=== PATIENT | male | born 1970 | race Caucasian/White ===

== ENCOUNTER → 2018-11-06 09:23 | Outpatient (CLI) | payer OTHER, SELFPAY ==
[2018-11-06 10:05] LABS: Absolute Lymphocyte Count 1.48 X10^3/ul (0.83-4.51); Absolute Neutrophil Count 4.6 X10^3/uL (2.0-7.7); Basophil# 0.04 X10^3/uL; Basophil% 0.6 % (0-1); Eosinophil# 0.15 X10^3/uL; Eosinophils% 2.2 % (0-5); Hematocrit 44.3 % (40-54); Hemoglobin 14.8 g/dl (13.0-16.5); Lymphocyte # 1.48 X10^3/ul (4.0); Lymphocyte % 21.8 % (19-41); Mean Corp Hgb Conc 33.4 g/gl (32-36); Mean Corpuscular Hgb 32.1 pg (27.0-32.0); Mean Corpuscular Volume 96.1 fL (80-94); Mean Platelet Vol. 9.6 fl (6.2-12.0); Monocyte# 0.53 X10^3/uL; Monocyte% 7.8 % (0-10); Neutrophil # 4.57 X10^3/uL (2.7-7.7); Neutrophil % 67.5 % (47-70); POSITIVE COUNT NO; POSITIVE DIFFERENTIAL NO; POSITIVE MORPHOLOGY NO; Platelet Count 254 K/mm3 (150-450); RBC Distribution Width CV 12.4 % (11.6-14.6); RBC Distribution Width SD 42.8 fl (35.1-43.9); Red Blood Count 4.61 M/mm3 (4.6-6.2); White Blood Count 6.8 K/mm3 (4.4-11.0)
[2018-11-06 10:27] LABS: ALB/GLOB Ratio 0.8 RATIO (0.9-2.4); AST(SGOT) 18 U/L (15-37); Alanine Aminotransfer ALT/SGPT 32 U/L (16-61); Albumin, Serum 3.3 g/dL (3.2-5.0); Alkaline Phosphatase 58 U/L (45-117); Anion Gap 6 (5-15); BUN 14 mg/dL (7-18); BUN/Creat Ratio 13.5 RATIO (10-20); Calcium,Total 8.5 mg/dL (8.5-10.1); Chloride 107 mmol/L (98-107); Cholesterol 191 mg/dL (200); Creatinine, Serum 1.04 mg/dL (0.70-1.30); EST Glomerular Filtration Rate 81 mL/min (>60); Est Glom Filt Rate - Afr Amer 98 mL/min (>60); Globulin 4.1 g/dL (2.2-4.2); Glucose 93 mg/dL (74-106); High Density Lipoprotein 54 mg/dL; PSA,Total - Annual Screen 0.84 ng/mL (0.00-4.00); Potassium 4.3 mmol/L (3.5-5.1); Protein, Total 7.4 g/dL (6.4-8.2); Sodium Level 142 mmol/L (136-145); Thyroid Stim Hormone (TSH) 1.95 uIU/mL (0.358-3.74); Triglycerides 90 mg/dL; Very Low Density Lipoprotein 18 mg/dL (5-40)
== END ==
PROVIDERS: Family Provider Nurse Practitioner; PCP Nurse Practitioner; Referring Provider Nurse Practitioner; Visit Provider Nurse Practitioner
DX: R10.13 Epigastric pain (principal); Z13.0 Encounter for screening for diseases of the blood and blood-forming organs and certain disorders involving the immune mechanism; Z12.5 Encounter for screening for malignant neoplasm of prostate; Z13.220 Encounter for screening for lipoid disorders; Z13.29 Encounter for screening for other suspected endocrine disorder
CPT/HCPCS: 36415; 80053; 80061; 84153; 84443; 85025; G0103

== ENCOUNTER → 2018-12-01 16:18 | Outpatient (CLI) | payer OTHER, SELFPAY ==
[2018-12-01 18:54] LABS: Vitamin B12 555 pg/mL (211-911)
[2018-12-01 19:16] LABS: Immature Platelet Fraction 2.4 % (1.0-7.9); RET-HE 32.5 pg (30-35); Reticulocyte Count 1.44 % (0.5-1.5)
== END ==
PROVIDERS: Family Provider Nurse Practitioner; PCP Nurse Practitioner; Referring Provider Nurse Practitioner; Visit Provider Nurse Practitioner
DX: R71.8 Other abnormality of red blood cells (principal)
CPT/HCPCS: 36415; 82607; 82746; 85045

== ENCOUNTER → 2018-12-06 15:52 | Outpatient (CLI) | payer OTHER, SELFPAY ==
--- NOTE | 2018-12-06 16:00 | US_ITS ---
STUDY: SUPERFICIAL ULTRASOUND - LEFT GROIN REASON FOR EXAM: Male, 48 years old. Left-sided hernia. Surgery many years ago. TECHNIQUE: A superficial ultrasound was performed with real-time and static carmichael-scale imaging. COMPARISON: None. FINDINGS: There is mild distortion in the subcutaneous tissues at the level of the prior hernia repair. Curvilinear echogenicity with posterior fusion shadowing in the left groin may be a previously implanted mesh. Deep to this is suggestion of an asymmetric rounded 3.5 cm area that does not change before or with Valsalva maneuver. US/Ext Non Vasc Limited/Soft Tiss IMPRESSION: Rounded 3.5 cm area in the left groin raises question of a small recurrent hernia, although its appearance is unchanged before and with Valsalva maneuver. The area is also difficult to evaluate due to posterior acoustic shadowing, possibly related to an overlapping mesh. Characterization with CT or MRI may be useful. Electronically Signed: Alonso Reynolds MD at 19:47 EST , Service support ,
--- NOTE | 2018-12-06 16:48 | CT_ITS ---
STUDY: CT ABDOMEN AND PELVIS WITHOUT CONTRAST REASON FOR EXAM: Male, 48 years old. Left-sided abdominal pain. Prior hernia repair x 2, question of recurrent hernia. RADIATION DOSAGE (If Supplied By Facility): CTDIvol = ( 14.75 ) mGy, DLP = ( 945.66 ) mGycm TECHNIQUE: Transaxial images were obtained from the dome of the diaphragm to the symphysis pubis without oral contrast, and without intravenous contrast. Sagittal and coronal images were reconstructed. Individualized dose optimization techniques were used for this CT. COMPARISON: None. FINDINGS: The visualized lung bases are unremarkable. The visualized portions of the heart are within normal limits. Normal liver. The portal vein diameter is 15.5 mm. There are multiple gallstones, one of the larger stones measuring 1.75 x 1.15 x 1.6 cm. There is no mural thickening of the gallbladder nor pericholecystic fluid to suggest cholecystitis. The common bile duct diameter is 5 mm. Normal spleen. Normal pancreas. Normal bilateral adrenal glands. Normal right kidney. Normal left kidney. No hydronephrosis. Normal visualized stomach. Normal small intestine. Normal colon. The appendix is visualized and appears normal. Normal abdominal aorta. Normal inferior vena cava. There are nonspecific periaortic lymph nodes in the retroperitoneum. Normal urinary bladder. Normal visualized prostate gland. There is a small umbilical hernia containing fat. There are mild multilevel degenerative changes of the visualized lumbar spine. Subcentimeter subarticular cystic degenerative change noted in the lateral roof of the left acetabulum. Small bilateral hydroceles are suggested. CT/Abdomen/Pelvis without Cont IMPRESSION: 1. Gallstones. No CT sign of acute cholecystitis or bile duct obstruction. 2. Small, fat-containing umbilical hernia. 3. The bowel is unremarkable without signs of obstruction. The appendix is normal. 4. No hydronephrosis. Electronically Signed: Alonso Reynolds MD at 17:33 EST , Service support ,
== END ==
PROVIDERS: Family Provider Nurse Practitioner; PCP Nurse Practitioner; Referring Provider Nurse Practitioner; Visit Provider Nurse Practitioner
DX: K45.8 Other specified abdominal hernia without obstruction or gangrene (principal)
CPT/HCPCS: 74176; 76882

== ENCOUNTER 2018-12-24 06:08 | Day surgery (SDC) | payer OTHER, SELFPAY ==
[2018-12-07 15:31] VITALS: BMI 34.9
[2018-12-24] VITALS (8 sets, daily range): BP systolic 75–136; BP diastolic 60–87; PULSE 69–88; RESP 16–18; TEMP 36.2–36.5; O2SAT 91–97; BMI 34.6
--- NOTE | 2018-12-24 07:30 | IMM_PTH ---
PATIENT: SUZANNE GARSIA LOC: EN U#:[id number] AGE/SX: 48/M ROOM: RE12/24/[address]: Dr. Suzanne Cueto MD : 1970 BED: DIS: 12/24/2018 SPEC #: [id number] RECD: 12/24/18 13:46 STATUS: MISBAH NOEMY #: [id number] LONI: 12/24/18 07:[address]: Suzanne Cueto DEPT: IMMUNOHISTOCHEMISTRY RECD BY: Naty Dan ENTERED: 12/24/18 13:47 SP TYPE: IMMUNO OTHR DR: Mi Ennis, SHAYE Tissues: A - Stomach, NOS Procedures: H Pylori (initial) PHYSICIAN & INSTITUTION [place] [id number] SPECIMEN INFORMATION: Tissue Source: A - Antrum biopsy Clinical Info: Epigastric pain, nausea, abdomen pain LLQ, umbilical hernia Specimen Number: [id number] CPT code: 62019 METHODOLOGY: Deparaffinized sections of prefer/formalin-fixed tissue or PAP/DQ stained slides are incubated with monoclonal/polyclonal antibodies/oligonucleotide probes. Localization is made via biotin free immunoperoxidase method. Appropriate controls are performed and reacted as expected. Results on target cell population are indicated in the following table: RESULTS: ANTIBODY / CLONE RESULT Block A H Pylori (polyclonal) negative These tests were developed and their performance characteristics determined by [facility]. They may not have been cleared or approved by the U.S. Food and Drug Administration. The FDA has determined that such clearance or approval is not necessary. INTERPRETATION: A. Antrum, biopsy: IHC with appropriate control is negative for Helicobacter organisms. CE:tere 12/27/18
--- NOTE | 2018-12-24 07:30 | EGD_PTH ---
PATIENT: SUZANNE GARSIA LOC: EN U#:[id number] AGE/SX: 48/M ROOM: RE12/24/[address]: Dr. Suzanne Cueto MD : 1970 BED: DIS: 12/24/2018 SPEC #: [id number] RECD: 12/24/18 10:59 STATUS: MISBAH NOEMY #: [id number] LONI: 12/24/18 07:[address]: Suzanne Cueto DEPT: SURGICAL PATHOLOGY RECD BY: Mian العلي ENTERED: 12/24/18 11:29 SP TYPE: EGD BIOPSY OTHR DR: SHAYE Gonzalez Tissues: A - Gastric mucous membrane B - Esophageal mucous membrane Procedures: Special Stain Group II Surgery Specimen Level IV Alcian Blue/PAS (control) HEADER OPERATION: Colonoscopy, EGD ([facility] [place]) PRE-OP DIAGNOSIS: Epigastric pain, nausea, abdomen pain left lower quadrant, umbilical hernia TISSUE SUBMITTED: A - Antrum biopsy for H. pylori and path, B - Distal esophagus biopsy MICROSCOPIC DIAGNOSIS A. Antrum biopsy for H. pylori and pathology: Focal mild chronic antral gastritis. See comment. B. Distal esophagus biopsy: Ulcerated squamous mucosa with acute inflammatory exudate and granulation tissue formation. Alcian blue/PAS stain with appropriate control is negative for fungal organism. No goblet cell metaplasia is found. CE:tere 12/27/18 COMMENT A. The results of immunohistochemistry for Helicobacter pylori will be reported separately ([id number]). MICROSCOPIC DESCRIPTION Slides are reviewed. GROSS DESCRIPTION A - Received in fixative is one container labeled with the patient's name and designated antrum biopsy. The specimen consists of one irregular fragment of light roach soft tissue that measures 0.4 x 0.3 x 0.1 cm. The specimen is totally submitted in one cassette. B - Received in fixative is one container labeled with the patient's name and designated esophagus biopsy. The specimen consists of multiple irregular fragments of light roach soft tissue that in aggregate measure 1 x 0.5 x 0.1 cm. The specimen is totally submitted in one cassette. / AM:tere 12/24/18 TC:3 CPT: 70856 x2, 83993
--- NOTE | 2018-12-24 07:58 | OP.ENDO_ITS ---
Patient Name: Errol Ruiz Procedure Date: 12/24/2018 7:24 AM Date of : 1970 Age: 48 Procedure: Upper GI endoscopy Indications: Epigastric abdominal pain Providers: Errol Cueto MD Referring MD: Errol Cueto MD Medicines: See the Anesthesia note for documentation of the administered medications Complications: No immediate complications. Procedure: Pre-Anesthesia Assessment: - Prior to the procedure, a History and Physical was performed, and patient medications and allergies were reviewed. The patient's tolerance of previous anesthesia was also reviewed. The risks and benefits of the procedure and the sedation options and risks were discussed with the patient. All questions were answered, and informed consent was obtained. Prior Anticoagulants: The patient has taken no previous anticoagulant or antiplatelet agents. ASA Grade Assessment: II - A patient with mild systemic disease. After reviewing the risks and benefits, the patient was deemed in satisfactory condition to undergo the procedure. After obtaining informed consent, the endoscope was passed under direct vision. Throughout the procedure, the patient's blood pressure, pulse, and oxygen saturations were monitored continuously. The gastroscope was introduced through the mouth, and advanced to the second part of duodenum. The upper GI endoscopy was accomplished without difficulty. The patient tolerated the procedure well. Scope In: 7:32:03 AM Scope Out: 7:37:43 AM Total Procedure Duration Time 0 hours 5 minutes 40 seconds Findings: The Z-line was irregular and was found 39 cm from the incisors. Biopsies were taken with a cold forceps for histology. LA Grade A (one or more mucosal breaks less than 5 mm, not extending between tops of 2 mucosal folds) esophagitis with no bleeding was found 39 cm from the incisors. A small hiatal hernia was present. Diffuse mildly erythematous mucosa without bleeding was found in the gastric antrum. Biopsies were taken with a cold forceps for histology. The examined duodenum was normal. Impression: - Z-line irregular, 39 cm from the incisors. Biopsied. - LA Grade A reflux esophagitis. - Small hiatal hernia. - Erythematous mucosa in the antrum. Biopsied. - Normal examined duodenum. Recommendation: - Discharge patient to home. - Resume previous diet. - Continue present medications. - Use Prilosec (omeprazole) 40 mg PO daily. - Return to my office in 2 weeks. Procedure Code(s): --- Professional --- 20533, Esophagogastroduodenoscopy, flexible, transoral; with biopsy, single or multiple Diagnosis Code(s): --- Professional --- K22.8, Other specified diseases of esophagus K21.0, Gastro-esophageal reflux disease with esophagitis K44.9, Diaphragmatic hernia without obstruction or gangrene K31.89, Other diseases of stomach and duodenum R10.13, Epigastric pain CPT copyright 2017 [employer]. All rights reserved. The codes documented in this report are preliminary and upon fire information officer review may be revised to meet current compliance requirements. Errol Cueto MD 12/24/2018 7:57:59 AM This report has been signed electronically. Number of Addenda: 0 Note Initiated On: 12/24/2018 7:24 AM
--- NOTE | 2018-12-24 08:01 | OP.ENDO_ITS ---
Patient Name: Errol Ruiz Procedure Date: 12/24/2018 7:38 AM Date of : 1970 Age: 48 Procedure: Colonoscopy Indications: Abdominal pain in the left lower quadrant Providers: Errol Cueto MD Referring MD: Errol Cueto MD Medicines: See the Anesthesia note for documentation of the administered medications Patient Profile: Last Colonoscopy: none. The patient's first colonoscopy is today. Complications: No immediate complications. Procedure: Pre-Anesthesia Assessment: - Prior to the procedure, a History and Physical was performed, and patient medications and allergies were reviewed. The patient's tolerance of previous anesthesia was also reviewed. The risks and benefits of the procedure and the sedation options and risks were discussed with the patient. All questions were answered, and informed consent was obtained. Prior Anticoagulants: The patient has taken no previous anticoagulant or antiplatelet agents. ASA Grade Assessment: II - A patient with mild systemic disease. After reviewing the risks and benefits, the patient was deemed in satisfactory condition to undergo the procedure. After I obtained informed consent, the scope was passed under direct vision. Throughout the procedure, the patient's blood pressure, pulse, and oxygen saturations were monitored continuously. The colonoscope was introduced through the anus and advanced to the cecum, identified by appendiceal orifice and ileocecal valve. The colonoscopy was performed without difficulty. The patient tolerated the procedure well. The quality of the bowel preparation was good. The ileocecal valve was photographed. Scope In: 7:41:09 AM Scope Withdrawal Time 0 hours 6 minutes 13 seconds Scope Out: 7:52:58 AM Total Procedure Duration Time 0 hours 11 minutes 49 seconds Findings: Hemorrhoids were found on perianal exam. A few diverticula were found in the sigmoid colon. The exam was otherwise without abnormality. Impression: - Hemorrhoids found on perianal exam. - Diverticulosis in the sigmoid colon. - The examination was otherwise normal. - No specimens collected. Recommendation: - Discharge patient to home. - Resume previous diet. - Continue present medications. - Repeat colonoscopy in 10 years for screening purposes. No findings that correlate with left lower quadrant abdominal pain Procedure Code(s): --- Professional --- 28504, Colonoscopy, flexible; diagnostic, including collection of specimen(s) by brushing or washing, when performed (separate procedure) Diagnosis Code(s): --- Professional --- K64.9, Unspecified hemorrhoids R10.32, Left lower quadrant pain K57.30, Diverticulosis of large intestine without perforation or abscess without bleeding CPT copyright 2017 [employer]. All rights reserved. The codes documented in this report are preliminary and upon meat counter worker review may be revised to meet current compliance requirements. Errol Cueto MD 12/24/2018 8:01:05 AM This report has been signed electronically. Number of Addenda: 0 Note Initiated On: 12/24/2018 7:38 AM
== END 2018-12-24 08:53 | disposition home or self-care (01) ==
LOC: EN 06:09 → AC 06:10
PROVIDERS: Family Provider Nurse Practitioner; PCP Nurse Practitioner; Referring Provider Surgery; Visit Provider Surgery
PROC: 0DJD8ZZ Inspection of Lower Intestinal Tract, Via Natural or Artificial Opening Endoscopic (ICD-10-PCS; CPT 45378; principal; 2018-12-24 07:25)
DX: K21.0 Gastro-esophageal reflux disease with esophagitis (principal); K29.50 Unspecified chronic gastritis without bleeding; K44.9 Diaphragmatic hernia without obstruction or gangrene; R10.13 Epigastric pain; K22.8 Other specified diseases of esophagus; K64.9 Unspecified hemorrhoids; K57.30 Diverticulosis of large intestine without perforation or abscess without bleeding; R10.32 Left lower quadrant pain; K80.10 Calculus of gallbladder with chronic cholecystitis without obstruction; K42.9 Umbilical hernia without obstruction or gangrene; Z87.891 Personal history of nicotine dependence
CPT/HCPCS: 43239; 45378; 88305; 88313; 88342; J7120; J2405

== ENCOUNTER 2018-12-31 05:18 | Day surgery (SDC) | payer OTHER, SELFPAY ==
[2018-12-07 15:31] VITALS: BMI 34.9
[2018-12-24 06:41] VITALS: BMI 34.6
--- NOTE | 2018-12-27 16:16 | EKG12_ITS ---
Test Reason : PRE OP Blood Pressure : / mmHG Vent. Rate : 072 BPM Atrial Rate : 072 BPM P-R Int : 168 ms QRS Dur : 090 ms QT Int : 372 ms P-R-T Axes : 063 018 040 degrees QTc Int : 407 ms Normal sinus rhythm Normal ECG Confirmed by LIVIA MAYA, KEVIN ([id number]), acquisitions editor DILAN MANZANARES ([id number]) on 12/28/2018 2:12:11 PM Referred By: Errol Cueto Confirmed By:KEVIN BHAKTA MD
[2018-12-27 17:15] LABS: Anion Gap 7 (5-15); BUN 14 mg/dL (7-18); BUN/Creat Ratio 12.4 RATIO (10-20); Calcium,Total 8.4 mg/dL (8.5-10.1); Chloride 107 mmol/L (98-107); Creatinine, Serum 1.13 mg/dL (0.70-1.30); EST Glomerular Filtration Rate 73 mL/min (>60); Est Glom Filt Rate - Afr Amer 89 mL/min (>60); Glucose 98 mg/dL (74-106); Potassium 3.9 mmol/L (3.5-5.1); Sodium Level 139 mmol/L (136-145)
[2018-12-27 17:37] LABS: Hemoglobin 14.9 g/dl (13.0-16.5); Mean Corp Hgb Conc 33.9 g/gl (32-36); Mean Corpuscular Hgb 32.5 pg (27.0-32.0); Mean Corpuscular Volume 95.9 fL (80-94); Mean Platelet Vol. 10.3 fl (6.2-12.0); Platelet Count 251 K/mm3 (150-450); RBC Distribution Width CV 12.9 % (11.6-14.6); RBC Distribution Width SD 44.1 fl (35.1-43.9); Red Blood Count 4.59 M/mm3 (4.6-6.2); White Blood Count 6.7 K/mm3 (4.4-11.0)
[2018-12-27 18:05] LABS: Scan Indicated on CBC? Y/N NO
[2018-12-31] VITALS (8 sets, daily range): BP systolic 84–130; BP diastolic 57–80; PULSE 61–76; RESP 16–18; TEMP 35.9–36.8; O2SAT 93–97; BMI 34.4
--- NOTE | 2018-12-31 | GALL_PTH ---
PATIENT: SUZANNE GARSIA [place] [facility] [place][id number] AGE/SX: 48/M ROOM: RE12/31/[address]: Dr. Suzanne Cueto MD : 1970 BED: DIS: 12/31/2018 SPEC #: [id number] RECD: 12/31/18 14:24 STATUS: MISBAH NOEMY #: [id number] LONI: 12/31/18 00:[address]: Suzanne Cueto DEPT: SURGICAL PATHOLOGY RECD BY: Prashant López ENTERED: 12/31/18 14:24 SP TYPE: MIROSLAVA CROSS DR: Mi Ennis, WIND FIELD MANAGER-C Tissues: A - Gallbladder, NOS B - HERNIA Procedures: Surgery Specimen Level II Surgery Specimen Level III HEADER OPERATION: Laparoscopic cholecystectomy with IOC; umbilical hernia repair with mesh PRE-OP DIAGNOSIS: Epigastric pain, nausea, abdominal pain left lower quadrant, calculus of gallbladder with chronic cholecystitis without obstruction, neuralgia of groin, umbilical hernia without obstruction or gangrene TISSUE SUBMITTED: A - Gallbladder, B - Hernia sac MICROSCOPIC DIAGNOSIS A. Gallbladder, cholecystectomy: Chronic cholecystitis. B. Hernia sac, herniorrhaphy: Fibrosis and vascular ectasia. AM:tere 01/03/19 MICROSCOPIC DESCRIPTION Slides are reviewed. GROSS DESCRIPTION A - Received is one container labeled with the patient's name and designated gallbladder. The specimen consists of a gallbladder measuring 10.5 x 3 x 3 cm. The external surface is smooth and glistening. Focally, it is granular, hemorrhagic and contains cautery artifact. The lumen of the gallbladder contains yellow-green mucoid bile and no calculi. The mucosa is bile-stained and without any mass lesions. The gallbladder wall averages 0.2 cm in thickness and is free of mass lesions. Risk And Insurance Manager sections of the gallbladder and the cystic duct are submitted in one cassette. B - Received in fixative is one container labeled with the patient's name and designated hernia sac. The specimen consists of three irregular fragments of pink-roach soft tissue that in aggregate measure 2 x 1.5 x 0.3 cm. The specimen is totally submitted in one cassette. / AM:tere 12/31/18 TC:3 CPT: 22749, 03329
[2018-12-31] MEDS: Cefazolin 2 GM in 0.9% Normal Saline 100 ML IV (07:55)
--- NOTE | 2018-12-31 07:58 | PCM.DC.GS ---
Discharge Diet: Light diet - advance as tolerated - if you have questions about your diet instructions, please talk to you doctor. Discharge Activity: May Not Drive - for 3-5days or while taking narcotic pain medicine. May shower in (days): 1 Lifting Restrictions: 10 pounds Call your doctor if your incision/area has: Continuous Slow Oozing, Sudden Increased Bleeding, Increased Pain/ Swelling, Increased Redness, Foul Smelling Discharge Call your doctor if you observe: Fever of 101 or Higher Suture Line Care: Avoid Pulling/Pushing, Avoid Pinching/Bending Additional Dressing/Incision Instructions:: Change or remove dressing in 4 days. Leave steri-strips in place for 1 week. Allergies/Adverse Reactions: Allergies aspirin Allergy (Unknown, Verified 12/21/18 11:28) Unknown Medications to take at Discharge Cyanocobalamin (Vitamin B-12) [Vitamin B-12] 1,000 mcg PO DAILY 12/21/18 Multivitamin [Multiple Vitamins] 1 each PO DAILY 12/21/18 Omeprazole 40 mg PO DAILY #90 tab 12/24/18 Hydrocodone Bitart/Apap 5-325 [[place] 5MG-325MG] 1 tablet PO Q4H PRN PRN 3 Days #8 tablet 12/31/18 The following prescriptions were given: Hydrocodone Bitart/Apap 5-325 [[place] 5MG-325MG] 1 tablet PO Q4H PRN PRN 3 Days #8 tablet PRN Reason: Pain Primary Care Physician: Mi Ennis, CALL CENTER DISPATCHER-C [Primary Care Provider] - Test Results: Test results from this visit will be discussed in further detail at your follow-up appointment, if applicable. Please Follow Up With: Errol Cueto MD - [phone] When: Call to make an appointment to be seen in about 10 days.
--- NOTE | 2018-12-31 08:05 | RAD_ITS ---
STUDY: INTRAOPERATIVE CHOLANGIOGRAM. REASON FOR EXAM: Male, 48 years old. Laparoscopic cholecystectomy. FLUOROSCOPY TIME (if supplied): (12.6 seconds) minutes/seconds TECHNIQUE: Intraoperative coagulum was performed by the surgeon. Imaging was provided. COMPARISON: None. FINDINGS: The visualized intrahepatic biliary ducts are unremarkable. The common bile duct is not dilated. No intraluminal filling defect is seen. There is free flow of contrast into the duodenum. RAD/Cholangiogram/ O R,Initial IMPRESSION: Unremarkable intraoperative cholangiogram. Electronically Signed: Sedrick Schrader MD at 9:45 EST , Service support ,
[2018-12-31] MEDS: Bupivacaine Mpf 0.5% 30 ML VIAL (09:40)
--- NOTE | 2018-12-31 09:44 | PCM.OPRPT ---
Problem List (1) Cholelithiasis with chronic cholecystitis Status: Chronic Qualifiers: Cholelithiasis location: gallbladder Biliary obstruction: without biliary obstruction Qualified Code(s): K80.10 - Calculus of gallbladder with chronic cholecystitis without obstruction Report of Operation Date of Procedure: 12/31/18 Pre-Operative Diagnosis: Chronic cholecystitis cholelithiasis. Umbilical hernia Post-Operative Diagnosis: Same Surgery/Procedure Performed:: Laparoscopic cholecystectomy with cholangiography. Umbilical herniorrhaphy utilizing ventral Juvenal ST mesh 6.4 cm diameter lot number [id number]. Reference #[id number]. Expiry date 10/27/2020 Description of Surgical Findings:: Timeout and informed consent was obtained. 48-year-old gent was taken out from placement table underwent general endotracheal intubation anesthesia. Ancef 2 g given intravenously preoperatively. The abdomen sterilely prepped and draped. 0.5% Marcaine was used as local anesthetic. Throughout the procedure total 30 cc was used. Skin sites were pre-anesthetized. A vertical incision was made through the umbilicus. Sharp and blunt dissection was used to identify the umbilical hernia was sharply dissected free holding sutures of 0 Vicryl placed a 10 mm trocar was directly placed through the open peritoneum the abdomen was insufflated with CO2 to a pressure of 10 mmHg pressure the abdomen was inspected there was fatty omentum overlying the small bowel no evidence of any trocar injuries. There was dense adherence of the omentum completely obliterating view to the gallbladder. 5-minute trochars were placed in the epigastric mid abdomen right upper quadrant tedious blunt dissection was required to gradually take the omentum off of the gallbladder hemo-lock clips were generous to be used for hemostasis finally I was able to get exposure down to the infundibular area further blunt dissection was used to get the critical view the cystic artery and cystic duct now clearly identified. Hemo-lock clip was placed on the cystic duct and then an incision was made in the cystic duct cholangiogram catheter was inserted through a 14-gauge Angiocath fluoroscopically controlled clench grams were obtained demonstrating normal ductal anatomy and free flow into the small bowel. The cholangiogram catheter was removed and a hemo-lock clip was nicely placed on the cystic duct. Cystic artery was cured twice proximally with 2 hemo-lock clips. Then the gallbladder was tediously dissected free from the liver bed with electrocautery. The gallbladder was very elongated and had several large stones. I was able to get good complete release of the gallbladder. The liver bed was inspected was noted to be hemostatic. Excess fluid and air was aspirated free generous irrigation had been utilized in the right upper quadrant. The gallbladder was placed in retrieval bag it was exited at the umbilicus enlargement of the fascial incision was required because of the size of the stones. The abdomen was allowed to deflate the CO2. The 6.4 similar ventral X was inserted. The tails were secured with 0 Nurolon. The fascia was closed transversely with multiple sutures of 0 Nurolon. Skin edges were approximated with interrupted 4 Monocryl subdermal stitches. I did laparoscopically inspect the repair prior to leaving. The mesh appeared to have a good positional flat lie. I made sure the greater omentum was beneath it. There was no evidence of the bowel. Trochars were removed under visualization. The abdomen was allowed to deflate of the CO2. Steri-Strips Telfa and OpSite dressings applied after the 4-0 Monocryl closure and the subcuticular layer. Sponge and instrument and needle counts were reported to the surgeon be correct. Blood loss was minimal. He tolerated the procedure well was taken to the recovery area in satisfactory condition without apparent complication. Specimens gallbladder and portions of umbilical hernia sac and contents. Drains none. Blood loss minimal. Errol Cueto M.D., F.A.C.S. Type of Anesthesia:: General Anesthesiologist: Timothy Santana
== END 2018-12-31 14:20 | disposition home or self-care (01) ==
LOC: SDC 05:19 → AC 05:20
PROVIDERS: Family Provider Nurse Practitioner; PCP Nurse Practitioner; Referring Provider Surgery; Visit Provider Surgery
PROC: (CPT 47610; principal; 2018-12-31 07:40)
DX: K80.10 Calculus of gallbladder with chronic cholecystitis without obstruction (principal); K42.9 Umbilical hernia without obstruction or gangrene; Z87.891 Personal history of nicotine dependence
CPT/HCPCS: 00790; 47563; 49652; 36415; 74300; 76000; 80048; 85027; 88302; 88304; 93005; C1781; J7120; J2405

== ENCOUNTER → 2021-11-09 10:21 | Outpatient (CLI) | payer OTHER, SELFPAY ==
[2021-11-09 11:07] LABS: ALB/GLOB Ratio 0.9 RATIO (0.9-2.4); AST(SGOT) 18 U/L (15-37); Alanine Aminotransfer ALT/SGPT 38 U/L (16-61); Albumin, Serum 3.6 g/dL (3.2-5.0); Alkaline Phosphatase 58 U/L (45-117); Anion Gap 7 (5-15); BUN 14 mg/dL (7-18); BUN/Creat Ratio 12.8 RATIO (10-20); Calcium,Total 8.7 mg/dL (8.5-10.1); Chloride 105 mmol/L (98-107); Cholesterol 176 mg/dL (200); Creatinine, Serum 1.09 mg/dL (0.70-1.30); EST Glomerular Filtration Rate 76 mL/min (>60); Est Glom Filt Rate - Afr Amer 91 mL/min (>60); Globulin 3.8 g/dL (2.2-4.2); Glucose 106 mg/dL (74-106); High Density Lipoprotein 61 mg/dL; Potassium 4.3 mmol/L (3.5-5.1); Protein, Total 7.4 g/dL (6.4-8.2); Sodium Level 140 mmol/L (136-145); Triglycerides 84 mg/dL; Very Low Density Lipoprotein 17 mg/dL (5-40)
== END ==
PROVIDERS: PCP Nurse Practitioner; Referring Provider Nurse Practitioner; Visit Provider Nurse Practitioner
DX: R55 Syncope and collapse (principal)
CPT/HCPCS: 36415; 80053; 80061

== ENCOUNTER → 2025-10-21 | Outpatient (CLI) | payer OTHER, SELFPAY ==
--- OUTSIDE RECORDS SUMMARY | 2025-10-21 09:07 | XMS RPT_ITS | CCD ---
Author Organization [facility] Care Team Providers Care Hand Wood Sander Name Role Phone Mi Venegas E Unavailable Juanita Amato Unavailable Unavailable Unavailable Unavailable Mi Venegas Unavailable Unavailable Mi Venegas Unavailable Unavailable Mi Venegas Unavailable Juanita Amato Unavailable Unavailable Unavailable Unavailable DAVID CARVAJAL MD Admitting Unavailable DAVID CARVAJAL MD Attending Unavailable DAVID CARVAJAL MD Primary Care Unavailable SIOMARA PICKETT MD Attending Unavailable SIOMARA PICKETT MD Primary Care Unavailable SIOMARA PICKETT MD Admitting Unavailable Rubi Mi KING Unavailable Suzanne Dozier Unavailable Curt Shah LPN Unavailable Unavailable Unavailable Unavailable Mi Venegas Unavailable Mi Venegas Unavailable Unavailable Mi Venegas Unavailable Tomeka Harvey LPN Unavailable Unavailable Lexii Coleman CNP Unavailable RUBI SHAW MI Primary Care Physician SUHAS RODRIGUEZ MD Attending Unavail able RUBI SHAW [facility] Primary Care Unavailable Allergies Allergy Classification Reported Allergen(s) Allergy Type Date of Onset Reaction(s) Facility (9 sources) Aspirin; Translations: [Aspirin *ANALGESICS - NonNarcotic*] Drug Allergy Hives, Swelling [facility] Work Phone: Medications Completed/Discontinued Medications Medication Drug Class(es) Dates Sig (Normalized) Sig (Original) omeprazole 40 mg delayed release oral capsule (8 sources) Proton Pump Inhibitor Start: 11-01-2018 End: 12-01-2018 take 1 capsule by mouth once daily before mealtime Omeprazole 40 MG Oral Capsule Delayed Release 1 (one) Capsule daily before a meal for 0 days Quantity: 30 {Capsule} Refills: 1 Ordered: 01-Dec-2018 Mi Venegas Start : 01-Nov-2018 End : 01-Dec-2018 Inactive NEGATED: Highlighted row has not occurred!No Known Historical Medications (4 sources) No Known Historical Medications Problems Active Problems Problem Classification Problem Date Documented Da te Episodic/Chronic Abdominal hernia (12 sources) Hernia of abdominal cavity; Translations: [Recurrent abdominal hernia without obstruction or gangrene, unspecified hernia type] 11-01-2018 Episodic Abdominal pain (12 sources) Epigastric pain; Translations: [Abdominal pain, epigastric] 11-01-2018 Episodic Comment on above: stop omeprazole Immunizations and screening for infectious disease (14 sources) Need for prophylactic vaccination and inoculation against influenza; Translations: [Needs influenza immunization] 11-18-2021 Episodic Open wounds of extremities (1 source) Laceration of hand without foreign body; Translations: [Laceration without foreign body of unspecified hand, initial encounter] Onset: 04-13-2023 Episodic Other hematologic conditions (9 sources) Other abnormality of red blood cells; Translations: [MCV - raised] 12-01-2018 Episodic Other lower respiratory disease (10 sources) Snoring; Translations: [Snores] 11-18-2021 Episodic Other nutritional; endocrine; and metabolic disorders (20 sources) Body mass index 30+ - obesity; Translations: [BMI 33.0-33.9,adult] 11-01-2018 Chronic Other screening for suspected conditions (not mental disorders or infectious disease) (20 sources) Patient encounter status; Translations: [Encounter for screening for lipid disorder] 11-18-2021 Episodic Residual codes; unclassified (10 sources) FH: Gout; Translations: [Family history of gout] 11-01-2018 Episodic Comment on above: brother Residual codes; unclassified (2 sources) Needs influenza immunization; Translations: [Need for prophylactic vaccination and inoculation against influenza (Renamed from Need for immunization against influenza)] 11-01-2018 Episodic Residual codes; unclassified (2 sources) Family history of ischemic heart disease and other diseases of the circulatory system; Translations: [Family history of early CAD] 11-01-2018 Episodic Comment on above: Father around age 65 [address] Residual codes; unclassified (8 sources) FH: premature coronary heart disease; Translations: [Family history of early CAD] 11-18-2021 Episodic Comment on above: Father around age 65 [address] Residual codes; unclassified (16 sources) Non-smoker; Translations: [Non-smoker] 11-18-2021 Episodic Residual codes; unclassified (4 sources) Influenza-like symptoms; Translations: [Flu-like symptoms] 12-03-2022 Episodic Comment on above: 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 discussed red flags. call Thursday if not better, we will do chest xray and maybe z martín-tylenol for fever, can also alternate with ibuprofen if no contraindications. -robitussin or equivalent for cough. try humidifier and vicks. cough drops. 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 Inessa Gupta at [facility].Stress normal, 30 day holter, pending. Past or Other Problems Problem Classification Problem Date Documented Date Episodic/Chronic Deficiency and other anemia (6 sources) Deficiency and other anemia Diabetes mellitus without complication (6 sources) Diabetes mellitus without complication Esophageal disorders (2 sources) Esophageal disorders Hemorrhoids (6 sources) Hemorrhoids; Translations: [Hemorrhoids] Onset: 11-30-1992 11-18-2021 Episodic Residual codes; unclassified (2 sources) H/O: Disorder; Translations: [Hemorrhoids] Onset: 11-30-1992 11-01-2018 Episodic Unclassified (20 sources) Unclassified (11 sources) Recurrent abdominal hernia without obstruction or gangrene, unspecified hernia type Unclassified (10 sources) Patient encounter status; Translations: [Encounter for screening for lipid disorder] 11-01-2018 Unclassified (16 sources) Screening status; Translations: [Encounter for screening for malignant neoplasm of prostate (Renamed from Screening for prostate cancer)] 11-01-2018 Unclassified (11 sources) Abdominal pain, epigastric Unclassified (6 sources) Encounter for screening for other suspected endocrine disorder Unclassified (8 sources) hay fever Onset: 11-30-1979 11-01-2018 Unclassified (6 sources) Encounter for well adult exam with abnormal findings (Renamed from Encounter for general adult medical examination with abnormal findings) Unclassified (6 sources) Screening for cardiovascular condition Unclassified (20 sources) Non-smoker; Translations: [Non-smoker] 11-01-2018 Unclassified (6 sources) Family history of gout Unclassified (6 sources) BMI 33.0-33.9,adult Unclassified (6 sources) Family history of early CAD Unclassified (9 sources) BMI 34.0-34.9,adult Unclassified (5 sources) Elevated MCV Unclassified (4 sources) BMI 35.0-35.9,adult Unclassified (8 sources) Snores Results Test Name Value Interpretation Reference Range Facility XR HAND MINIMUM [address] [facility] 04-13-2023 XR HAND MINIMUM 3 VIEWS RIGHT ORIGINAL EXAMINATION: THREE XRAY VIEWS OF THE RIGHT HAND 04/13/2023 1:36 pm COMPARISON: None. HISTORY: ORDERING SYSTEM PROVIDED HISTORY: Reason for Exam: pain; laceration to posterior aspect of hand directly across knuckles. Patient states using granular work in slice back of hand no history of any other injury or foreign body FINDINGS: No fracture or dislocation. There are multiple tiny radiopaque foreign bodies noted in the dorsal soft tissues at the 2nd and 3rd MCP joints. There is additional soft tissue swelling and subcutaneous air noted in the same location. Carpal arcs are maintained. Scapholunate relationship is normal. IMPRESSION: No acute osseous abnormality. Soft tissue laceration with numerous tiny radiopaque foreign bodies of the dorsal hand at the 2nd and 3rd MCP joints. I have personally reviewed the images of this examination and agree with the resident's findings and interpretation. Interpreted by: Cristobal Coto MD Preliminary Report By: Yinka Christian Electronically signed By Cristobal Coto MD Dictated Date: 04/13/2023 1:51:19 PM Prelim Date: 04/13/2023 1:56:41 PM Sign Date: 04/13/2023 2:10:22 PM Ordering Provider: SUHAS Banda [facility] ([place] Comprehensive Metabolic Prof mieric 11-09-2021 Albumin [Mass/Vol] 3.6 g/dL Normal 3.2-5.0 [facility] Comment on above: Performed By: #### L 500.4050, L500.4100 #### [facility] [address] [place], [address] Albumin/Globulin [Mass ratio] 0.9 {ratio} Normal 0.9-2.[address] [facility] Comment on above: Performed By: #### L 500.4050, L500.4100 #### [facility] [address] [place], [address] ALK P 58 U/L Normal 45-117 [facility] Comment on above: Performed By: #### L 500.4050, L500.4100 #### [facility] [address] [place], [address] ALT [Catalytic activity/Vol] 38 U/L Normal 16-[address] [facility] Comment on above: Performed By: #### L 500.4050, L500.4100 #### [facility] [address] [place], [address] AST [Catalytic activity/Vol] 18 U/L Normal 15-[address] [facility] Comment on above: Performed By: #### L 500.4050, L500.4100 #### [facility] [address] [place], [address] Bilirubin [Mass/Vol] 0.60 mg/dL Normal 0.20-1.[address] [facility] Comment on above: Result Comment: For patients on eltrombopag therapy, use of Dimension [place] TBIL is not recommended. Performed By: #### L 500.4050, L500.4100 #### [facility] [address] [place], [address] BUN/CRE 12.8 RATIO Normal 10-20 [facility] Comment on above: Performed By: #### L 500.4050, L500.4100 #### [facility] [address] [place], [address] CA,Total 8.7 mg/dL Normal 8.5-10.1 [facility] Comment on above: Performed By: #### L 500.4050, L500.4100 #### [facility] [address] [place], [address] Chloride [Moles/Vol] 105 mmol/L Normal 98-[address] [facility] Comment on above: Performed By: #### L 500.4050, L500.4100 #### [facility] [address] [place], [address] CO2 [Moles/Vol] 28.0 mmol/L Normal 21.0-32.0 [facility] Comment on above: Performed By: #### L 500.4050, L500.4100 #### [facility] [address] [place], [address] Creatinine [Mass/Vol] 1.09 mg/dL Normal 0.70-1.[address] [facility] Comment on above: Result Comment: The validity of the calculated GFR GFRAA in patients over 70 years has not been determined. Clinical correlation is essential. Performed By: #### L 500.4050, L500.4100 #### [facility] [address] [place], [address] EST GFR - AA 91 mL/min Normal >60 [facility] Comment on above: Result Comment: Afri can Nepalese GFR Calc Performed By: #### L 500.4050, L500.4100 #### [facility] [address] [place], [address] GAP 7 Normal 5-15 [facility] Comment on above: Performed By: #### L 500.4050, L500.4100 #### [facility] [address] [place], [address] GFR/1.73 sq M.predicted among non-blacks MDRD (S/P/Bld) [Vol rate/Area] 76 mL/min/{1.73_m2} Normal >60 [facility] Comment on above: Result Comment: Non- GFR Calc Performed By: #### L 500.4050, L500.4100 #### [facility] [address] [place], [address] Globulin (S) [Mass/Vol] 3.8 g/dL Normal 2.2-4.[address] [facility] Comment on above: Performed By: #### L 500.4050, L500.4100 #### [facility] [address] [place], [address] Glucose [Mass/Vol] 106 mg/dL Normal 74-106 [facility] Comment on above: Result Comment: Fast ing Glucose result from 100 to 125 mg/dL suggests IMPAIRED HOMEOSTASIS per A.D.A. criteria. Please note revised GLUCOSE reference range effective 2018. Performed By: #### L 500.4050, L500.4100 #### [facility] [address] [place], [address] Potassium [Moles/Vol] 4.3 mmol/L Normal 3.5-5.[address] [facility] Comment on above: Performed By: #### L 500.4050, L500.4100 #### [facility] [address] [place], [address] Sodium [Moles/Vol] 140 mmol/L Normal 136-145 [facility] Comment on above: Performed By: #### L 500.4050, L500.4100 #### [facility] [address] [place], [address] T PROT 7.4 g/dL Normal 6.4-8.2 [facility] Comment on above: Performed By: #### L 500.4050, L500.4100 #### [facility] [address] [place], [address] Urea nitrogen [Mass/Vol] 14 mg/dL Normal 7-[address] [facility] Comment on above: Performed By: #### L 500.4050, L500.4100 #### [facility] [address] [place], [address] Lipid Profileon 11-09-2021 Cholesterol [Mass/Vol] 176 mg/dL Normal [address] [facility] Comment on above: Result Comment: <200 mg/dL Desirable 200-240 mg/dL Borderline >240 mg/dL High Risk Performed By: #### L 500.4050, L500.4100 #### [facility] [address] [place], [address] Cholesterol in HDL [Mass/Vol] 61 mg/dL Normal [facility] Comment on above: Result Comment: The drugs N-Acetylcysteine and Metamizole may falsely depress this assay. Reference Range HDL <40 mg/dL Low HDL Cholesterol HDL >or= 60 mg/dL High HDL Cholesterol Performed By: #### L 500.4050, L500.4100 #### [facility] [address] [place], [address] Cholesterol in LDL [Mass/Vol] 98 mg/dL Normal 0-[address] [facility] Comment on above: Performed By: #### L 500.4050, L500.4100 #### [facility] [address] [place], [address] Cholesterol in VLDL [Mass/Vol] 17 mg/dL Normal 5-[address] [facility] Comment on above: Performed By: #### L 500.4050, L500.4100 #### [facility] [address] [place], [address] Triglyceride [Mass/Vol] 84 mg/dL Normal [facility] Comment on above: Result Comment: The drugs N-Acetylcysteine and Metamizole may falsely depress this assay. Serum Triglycerides Reference Interval Normal <150 mg/dL Borderline high 150 - 199 mg/dL High 200 - 499 mg/dL Very High > or = 500 mg/dL Performed By: #### L 500.4050, L500.4100 #### [facility] [address] [place], [address] EMERGENCY REPORTon [address] [facility] EMERGENCY ROOM REPORT NAME ACCOUNT SEX AGE ADMIT DISCHARGE PT MED. RECORD# NUMBER DATE DATE TYPE SUZANNE GARSIA [id number] M 50 10/06/21 3 RAHEEL [id number] ROOM: ER DATE OF : 1970 DICTATING PHYSICIAN: Christina Joel TIME SEEN: 1900 hours. HISTORY OF PRESENT ILLNESS: This is a 50-year-old white male who passed out at home. He states that he was laughing rather forcefully and then the family noticed that he stopped breathing for about 20-30 seconds, and his eyes rolled back in his head, and he fell backwards off a bench and struck his head on a bookcase behind him. Family states he was only out for seconds, and he did not really seem confused when he woke up. He pretty much remembers everything, but daughter said that he turned like a reddish-purple and stopped breathing and then fell. His eyelids were fluttering, and she could only see the sclera. His mouth was gaping. He has never had this before. The patient has been complaining of some left shoulder pain that goes into his thoracic back for the past couple of days. 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 He really does not notice that the left shoulder pain gets worse with movement. Occasionally it does, but for a lot of the time it does not sound to me like the way he is describing this to me that his left shoulder pain gets worse with movement. He presently denies any headache. The family did not see any seizure-type activity. He just had a mild shake to his head when this first happened, and that has all resolved. He did come here by EMS. PAST MEDICAL HISTORY: Denied. PAST SURGICAL HISTORY: Denied. MEDICATIONS: He is not currently on any medications. ALLERGIES: No known drug allergies. SOCIAL HISTORY: He is not a smoker. He denies any use of alcohol or illicit drugs. He lives at home with family. REVIEW OF SYSTEMS: He denies any fevers, sweats or chills. He denies any sore throat, ear pain, nasal congestion, or chest pain. He did complain of some shortness of breath earlier. He denies any cough, sputum, wheezing, abdominal pain, nausea, vomiting, diarrhea, constipation, melena, hematochezia, urinary urgency, frequency, dysuria, hematuria, headache, numbness, unsteady gait, weakness, neck or back pain, joint pain, skin rash or swelling, hives, hay fever, or swollen glands. Further review of systems is negative. PHYSICAL EXAMINATION: VITAL SIGNS: Blood pressure is 174/92, pulse 98, respirations 20, temperature 98, and pulse oximetry 96%. GENERAL: He does not have a primary care physician. The patient presently is alert and oriented x3. He presently appears in no acute Page 1 of 2 SUZANNE GARSIA Emergency Room Report SUZANNE GARSIA : 1970 distress. He is very pleasant, cooperative and conversant. He makes eye contact. He speaks in full sentences. HEENT: Head appears atraumatic. Pupils are equal and reactive to light. Red reflexes are intact bilaterally. Extraocular muscles are intact. No conjunctival injection. No scleral icterus or lid edema. EARS: TMs are intact bilaterally. No erythema noted. No external auditory canal edema or bleeding. NOSE: Nose exhibits no rhinorrhea or epistaxis. MOUTH: Mucous membranes are moist. No pharyngeal erythema. Uvula is midline and elevates. NECK: Neck is supple. Trachea is midline. No JVD or lymphadenopathy. No posterior cervical tenderness. No nuchal rigidity. LUNGS: Lungs are clear to auscultation bilaterally. No adventitious sounds are noted. No accessory muscle use is noted. CV: Heart rate and rhythm are regular without murmur. ABDOMEN: Abdomen is soft and nontender with normoactive bowel sounds x4 quadrants. No guarding or rigidity. No rebound. No palpable abdominal masses. No hepatosplenomegaly. BACK: Back exhibits no midline or paraspinal region tenderness. No increased paraspinal muscle rigidity. Negative Srikanth's sign. EXTREMITIES: No edema or cyanosis. Peripheral pulses are intact. No motor or sensory deficits are noted. Hand branch lending manager are strong and symmetric. SKIN: Skin is warm and dry. No diaphoresis or rash. NEUROLOGIC: Neurologic examination shows the patient to be alert and oriented x4. No motor or sensory deficits are noted. Normal speech. No slurred speech. DIAGNOSTIC DATA: EKG was done at 1854 hours. It shows a normal sinus rhythm at a rate of [address]-segment changes were noted. [place] is approximately -30 degrees. EMERGENCY DEPARTMENT COURSE AND TREATMENT: Presently, I do have a cardiac work-up pending. I did order blood cultures and a lactate level as well. We will get some orthostatic vital signs, and I am going to do a CT scan of the head and neck. When I did reexamine the patient, he did have a little bit of diffuse posterior cervical tenderness rather diffusely. It was on the midline but was also in the bilateral para (more content not included)... Normal [facility] EMERGENCY REPORT [facility] EMERGENCY ROOM REPORT NAME ACCOUNT SEX AGE ADMIT DISCHARGE PT MED. RECORD# NUMBER DATE DATE TYPE SUZANNE GARSIA [id number] M 50 10/06/21 3 RAHEEL [id number] ROOM: ER DATE OF : 1970 DICTATING PHYSICIAN: Christina Joel ADDENDUM DIAGNOSTIC DATA: White count was 7.2, hemoglobin 14.6, hematocrit 44.3, and platelet count 258,000. D-dimer was negative at 219. Sodium was 142, potassium 3.5, chloride 102, CO2 of 28, BUN 17, creatinine 1.36, and glucose 95. AST was 18, ALT 43, alkaline phosphatase 62, and total bilirubin 0.2. Lactate was normal at 0.9. Anion gap was 16. Troponin was normal at 5.7. BNP was normal at 42. Chest x-ray showed no acute infiltrate or failure. Urinalysis was negative. Microscopic was not indicated. Specific gravity was 1.015. I do have [address] scan of the brain showed some mild atrophy but was negative for bleed. There was no acute disease. Sinuses were clear. CT of the cervical spine showed no evidence of fracture or subluxation. EMERGENCY DEPARTMENT COURSE AND TREATMENT: I did talk to the patient and felt since he had a syncopal episode here with no prior episodes and no previous cardiac work-up that he should be admitted for this and have a cardiac work-up. The patient is agreeable to staying. I spoke with Dr. Carvajal, and he did agree to admit the patient for further work-up. DIAGNOSIS: Syncope. Dictated By: Christina Joel DO 10/06/21 22:19 JOB #: [id number] Transcribed By: kassie 10/07/21 14:24 Electronically signed by: E-Sign: Dr. Christina Joel D.O. 10/19/21 21:26 Page 1 of 1 SUZANNE GARSIA Emergency Room Report Normal [facility] CV CAROTID STUDYon 1 CV CAROTID STUDY [place] [address] Patient: SUZANNE GARSIA Phone#: : 1970 Age: 50 Gender: M Pt. Type: ER Account: [id number] Location: [facility] Ordering: DAVID CARVAJAL Exam Date: 10/07/2021/8:57 Family Phys: Charge Code: [id number] Physician: Whitfield Order #: [id number] DLP Dose#: PROCEDURE: CAROTID FLOW STUDY COMPARISON: None. INDICATIONS: Altered mental status TECHNIQUE: Color duplex Doppler ultrasound and pulsed Doppler analysis were performed to evaluate the cervical carotid arteries and vertebral flow. All measurements for carotid artery narrowing or stenosis were obtained using the ipsilateral distal internal carotid artery as the reference value. UNDRAPED ARTIST MODEL: BERNARDO PT HISTORY: Altered mental status RIGHT IMAGING FINDINGS: CCA: Mild heterogenous plaque is present. ICA: Mild heterogenous plaque without hemodynamically significant stenosis. ECA: Mild heterogenous plaque is present. Vertebral A: Antegrade flow Comments: Category: II. Less than 50% stenosis. ICA PSV less [id number]. Plaque and/or intimal thickening present. LEFT IMAGING FINDINGS: CCA: Mild heterogenous plaque is present. ICA: Mild heterogenous plaque without hemodynamically significant stenosis. ECA: Mild heterogenous plaque is present. Vertebral A: Antegrade flow. Comments: Category: II Less than 50% stenosis ICA PSV, less [id number]. Plaque and/or intimal thickening present. RIGHT VELOCITY RECORDINGS Prox CCA: 68.92 cm/s Prox CCA EDV: 15.90 cm/s Mid CCA: 71.71 cm/s Mid CCA EDV: 21.48 cm/s Continued Report - Page 2 of 2 Patient: SUZANNE GARSIA Phone#: : 1970 Age: 50 Gender: M Pt. Type: ER Account: [id number] Location: 052 Ordering: DAVID CARVAJAL Exam Date: 10/07/2021/8:57 Family Phys: Charge Code: [id number] Physician: Whitfield Order #: [id number] DLP Dose#: Distal CCA: 65.76 cm/s Distal CCA EDV: 22.97 cm/s ECA: 77.85 cm/s ECA EDV: 9.95 cm/s Prox ICA: 85.31 cm/s Prox ICA EDV: 40.34 cm/s Mid ICA: 96.56 cm/s Mid ICA EDV: 40.34 cm/s Distal ICA: 92.15 cm/s Distal ICA EDV: 46.00 cm/s Vertebral Artery: 40.87 cm/s Vertebral Artery EDV: 15.48 cm/s Subclavian Artery: 113.34 cm/s LEFT VELOCITY RECORDINGS Prox CCA: 53.11 cm/s Prox CCA EDV: 18.52 cm/s Mid CCA: 74.33 cm/s Mid CCA EDV: 23.82 cm/s Distal CCA: 62.77 cm/s Distal CCA EDV: 19.72 cm/s ECA: 101.43 cm/s ECA EDV: 15.05 cm/s Prox ICA: 50.81 cm/s Prox ICA EDV: 26.84 cm/s Mid ICA: 79.63 cm/s Mid ICA EDV: 34.96 cm/s Distal ICA: 66.46 cm/s Distal ICA EDV: 34.81 cm/s Vertebral Artery: 50.45 cm/s Vertebral Artery EDV: 15.88 cm/s Subclavian Artery: 119.98 cm/s CONCLUSION: 1. Mild irregular mixed plaque is present bilaterally 2. There is no evidence of hemodynamically significant stenosis. Dictated by: Marilee Dallas MD on 10/07/2021 at 9:55 Approved by: Marilee Dallas MD on 10/07/2021 at 9:56 Normal [facility] CV ECHO COMPLETEon CV ECHO [place] [address] Patient: SUZANNE GARSIA Phone#: : 1970 Age: 50 Gender: M Pt. Type: ER Account: [id number] Location: 052 Ordering: [employer] Exam Date: 10/07/2021/7:38 Family Phys: Charge Code: [id number] Physician: Whitfield Order #: [id number] DLP Dose#: PROCEDURE: ECHOCARDIOGRAM WITH DOPPLER AND COLOR FLOW HISTORY: Patient is a 50-year-old male with syncope INDICATIONS: Syncope COMPARISON: None. TECHNIQUE: A 2-D ultrasound, color spectral Doppler and M-mode evaluation of the heart and great vessels. PATIENT MEASUREMENTS: Height (in.): 68 BSA: 2.2 Weight (lbs.): 230 BP: 133/85 Polygraph Technician: BERNARDO M MODE 2D MEASUREMENTS AND CALCULATIONS: LVIDd: 4.9 cm LVIDs: 2.4 cm IVSd: 1.0 cm LVPWd: 1.0 cm LVOT diam: 2.5 cm FS: 51 % Ao Root diam: 3.02 cm LA diam: 3.92 cm LA Volume Index: 21 mL/m2 LA A4 Area: 18.40 cm2 RA A4 Area: 17.5 cm2 RVDd: 3.06 cm TAPSE: 23 mm DOPPLER MEASUREMENTS AND CALCULATIONS MITRAL MV E MAX ramon: 0.78 m/s MV A MAX ramon: 0.75 m/s MV E-A ratio: 1.03 Lat Peak E' Ramon 13 cm/sec Continued Report - Page 2 of 3 Patient: SUZANNE GARSIA Phone#: : 1970 Age: 50 Gender: M Pt. Type: ER Account: [id number] Location: 052 Ordering: [employer] Exam Date: 10/07/2021/7:38 Family Phys: Charge Code: [id number] Physician: Whitfield Order #: [id number] DLP Dose#: Septal Peak E' RAMON 9 cm/sec E/E' lateral 6 E/E' medial 9 AORTIC Ao V2 max: 1.08 m/s Ao max P.67 mm[Hg] LV V1 Max 0.84 m/s LV V1 Max PG 2.79 mm[Hg] PULMONIC PA V2 Max 1.02 m/s PA Max PG 4.14 mm[Hg] TRICUSPID TR Max Ramon 1.79 m/s TR max PG 12.90 mm[Hg] RVSP 2D/M-MODE AND COLOR FLOW LEFT VENTRICLE: Left ventricle is normal in size and thickness. Systolic ejection fraction is 55-60%. There are no obvious regional wall motion abnormality seen. WALL MOTION: 1 - Basal anterior: Normal. 7 - Mid anterior: Normal. 13 - Apical anterior: Normal. 2 - Basal anteroseptal: Normal. 8 - Mid anteroseptal: Normal. 14 - Apical septal: Normal. 3 - Basal inferoseptal: Normal. 9 - Mid inferoseptal: Normal. 15 - Apical inferior: Normal. 4 - Basal inferior: Normal. 10-Mid inferior: Normal. 16 - Apical lateral: Normal. 5 - Basal inferolateral: Normal. 11-Mid inferolateral: Normal. 6 - Basal anterolateral: Normal. 12-Mid anterolateral: Normal. RIGHT VENTRICLE: Right ventricle is normal in size and systolic function LEFT ATRIUM: Left atrium is normal in size RIGHT ATRIUM: Right atrium is normal in size. ATRIAL SEPTUM: There is no large interatrial shunt seen. PFO was not assessed. MITRAL VALVE: Mitral valve appears normal in structure. There is trivial regurgitation and no stenosis seen. TRICUSPID VALVE: Tricuspid valve appears normal in structure. There is trivial regurgitation no stenosis seen AORTIC VALVE: Aortic valve is trileaflet. There is no regurgitation or stenosis seen PULMONIC VALVE: Inadequately visualized. Doppler shows trivial regurgitation and no stenosis AORTIC ROOT: Aortic root is normal in size AORTIC ARCH: Inadequately visualized DESC THORACIC AORTA: Inadequately visualized IVC/SVC: IVC is normal in size with > 50% collapse of inspiration estimated right atrial pressure is 3 mm Hg Continued Report - Page 3 of 3 Patient: SUZANNE GARSIA Phone#: : 1970 Age: 50 Gender: M Pt. Type: ER Account: [id number] Location: [facility] Ordering: DAVID CARVAJAL Exam Date: 10/07/2021/7:38 Family Phys: Charge Code: [id number] Physician: Whitfield Order #: [id number] DLP Dose#: PULMONARY VEINS: There is systolic flow predominance the pulmonic PERICARDIUM: There is no pericardial effusion seen. CONCLUSION: 1. Left ventricle is normal in size and thickness. Systolic ejection fraction is 55-60%. There are no regional wall motion abnormality seen. 2. There are no significant valvular dysfunction seen 3. Right ventricle is normal in size and systolic function 4. TR velocity is inadequate to calculate for right ventricular systolic pressure 5. There are no prior studies for comparison. Dictated by: INESSA GUPTA MD on 10/07/2021 at 10:04 Approved by: INESSA GUPTA MD on 10/07/2021 at 10:18 Normal [facility] MR MRI BRAIN W/O CONTRASTon 10-07-2021 MR MRI BRAIN W/O CONTRAST [place] [address] Patient: SUZANNE GARSIA Phone#: : 1970 Age: 50 Gender: M Pt. Type: ER Account: [id number] Location: 05 Ordering: DAVID CARVAJAL Exam Date: 10/07/2021/8:39 Family Phys: Charge Code: [id number] Physician: Whitfield Order #: [id number] DLP Dose#: PROCEDURE: MRI BRAIN WITHOUT CONTRAST COMPARISON: None. INDICATIONS: Altered mental status TECHNIQUE: A variety of imaging planes and parameters were utilized for visualization of suspected pathology. Images were performed without contrast. FINDINGS: CEREBRUM: No edema, hemorrhage, mass, acute infarction, or inappropriate atrophy. CEREBELLUM: No edema, hemorrhage, mass, acute infarction, or inappropriate atrophy. BRAINSTEM: No edema, hemorrhage, mass, acute infarction, or inappropriate atrophy. CSF SPACES: Ventricles, cisterns, and sulci are appropriate for age. No hydrocephalus, subarachnoid hemorrhage, or mass. SKULL: No mass or other significant visible lesion. SINUSES: Mucosal thickening is present in the ethmoid sinuses. ORBITS: Limited views are unremarkable. OTHER: Negative. CONCLUSION: No acute disease. There is no evidence of acute infarct. Dictated by: Marilee Dallas MD on 10/07/2021 at 9:34 Approved by: Marilee Dallas MD on 10/07/2021 at 9:36 Normal [facility] NM CARDIAC STRESS (SPECT) W/ TREADMILLon 10-07-2021 NM CARDIAC STRESS (SPECT) W/TREADMILL [address] [address] Patient: SUZANNE GARSIA Phone#: : 1970 Age: 50 Gender: M Pt. Type: ER Account: [id number] Location: [facility] Ordering: DAVID CARVAJAL Exam Date: 10/07/2021/8:12 Family Phys: Charge Code: [id number] Physician: Whitfield Order #: [id number] DLP Dose#: PROCEDURE: CARDIAC STRESS SPECT WITH TREADMILL EXERCISE HISTORY: Patient is a 50-year-old male with history of syncope COMPARISON: None. INDICATIONS: Syncope TECHNIQUE: Resting and stress SPECT images acquired in the horizontal long, vertical long and short axis views. Protocol: Hair Duration: 12:22 minutes Peak Heart Rate: 157 bpm, which is 92% of maximum predicted heart rate. Workload: 13.7 METs REST DOSE: 11.3 mCi Sestamibi. STRESS DOSE: 32.4 mCi Sestamibi. INTERPRETATION: Resting Images: Rest images shows moderate perfusion defect in the inferior wall which mildly improved with stress. Stress Images: Stress images showed mild perfusion defect in the inferior wall which mildly improved from stress images. There is no associated wall motion abnormalities to suggest infarct. Gated SPECT/wall motion: Gated SPECT showed calculated ejection fraction is 64%. There are no regional wall motion abnormality seen. TID ratio is 0.7 CONCLUSION: 1. Nuclear stress test showed no conclusive evidence of reversible ischemia or infarct. 2. There is a fixed defect in the inferior wall mildly improved on stress images without any associated wall motion abnormality. This is likely from diaphragmatic attenuation artifact 3. Calculated ejection fraction is 64% with normal wall motion. TID ratio is normal [address] [address] Patient: SUZANNE GARSIA Phone#: : 1970 Age: 50 Gender: M Pt. Type: ER Account: [id number] Location: 052 Ordering: [employer] Exam Date: 10/07/2021/8:12 Family Phys: Charge Code: 740261 Physician: Whitfield Order #: [id number] DLP Dose#: Dictated by: INESSA GUPTA MD on 10/07/2021 at 16:47 Approved by: INESSA GUPTA MD on 10/07/2021 at 16:55 Normal [facility] NM EXERCISE STRESS TEST (W/C ARDIAC STUDYon 10-07-2021 NM EXERCISE STRESS TEST (W/CARDIAC STUDY [place] [address] Patient: SUZANNE GARSIA Phone#: : 1970 Age: 50 Gender: M Pt. Type: Out Account: [id number] Location: 052 Ordering: [employer] Exam Date: 10/07/2021/8:12 Family Phys: Charge Code: 852608 Physician: Whitfield Order #: [id number] DLP Dose#: PROCEDURE: ELECTROCARDIOGRAM STRESS TEST HISTORY: Patient is a 50-year-old male with history of syncope COMPARISON: None. INDICATIONS: Syncope TECHNIQUE: Electrocardiogram stress test was performed using the protocol listed below. STRESS RESULTS: Protocol: Hair Duration: 12:22minutes Reason for termination: BLE FATIGUE Resting Heart Rate: 157 bpm. Resting Blood Pressure: 132/92 mmHg Peak Heart Rate: 157 which is 92% of maximum predicted heart rate Peak Blood Pressure: 196/88 @ 3:50 INTO RECOVERY Workload: 13.70 METs. Symptoms with stress: Patient did not complain of any chest pain or significant shortness of breath with stress. Stress test was ended due to lower extremity fatigue EKG Data EKG at Baseline: EKG at baseline showed sinus rhythm at 64 BPM. Otherwise normal EKG EKG with Stress: EKG with stress showed sinus tachycardia at 155 BPM. There are no ST or T- wave changes to suggest inducible ischemia. CONCLUSION: 1. Patient did not complain any chest pain or shortness of breath with stress. Stress test was ended due to lower extremity fatigue 2. Patient was able to achieve good workload capacity. Patient had appropriate heart rate and blood pressure response with stress 3. Stress EKG is negative for inducible ischemia Continued Report - Page 2 of 2 Patient: SUZANNE GARSIA Phone#: : 1970 Age: 50 Gender: M Pt. Type: Out Account: [id number] Location: [facility] Ordering: DAVID CARVAJAL Exam Date: 10/07/2021/8:12 Family Phys: Charge Code: [id number] Physician: Whitfield Order #: [id number] DLP Dose#: 4. Nuclear images will be read and reported separately Dictated by: INESSA GUPTA MD on 10/07/2021 at 12:29 Approved by: INESSA GUPTA MD on 10/07/2021 at 12:33 Normal [facility] TROPONIN I, HIGH SENSITIVITY on 10-07-2021 HS TROPONIN 5.1 pg/mL Normal 0.0 - 76.2 [facility] Comment on above: Performed By: #### 2 25773 #### [facility],[address] [place], [place] [id number] HS TROPONIN 7.2 pg/mL Normal 0.0 - 76.2 [facility] Comment on above: Performed By: #### 2 48948 #### [facility],[address] [place] [address]01 CBC + DIFFon 10-06-2021 BANDS 1 % Normal 0 - 5 [facility] Comment on above: Performed By: #### 2 06670 #### [facility],[address] [place] [address] 70665 Basophils/100 WBC (Bld) 1.0 % Normal 0.0 - 2.0 [facility] Comment on above: Performed By: #### 2 03884 #### [facility],[address] [place] [address] 07705 CBC + DIFF Normal [facility] Comment on above: Result Comment: CBC- COMPLETE BLOOD COUNT Performed By: #### 2 04421 #### [facility],[address] [place] [address] 92890 CELL COUNT 100 Normal [facility] Comment on above: Performed By: #### 2 48817 #### [facility],[address] [place] [address] 01602 EO 4.0 % Normal 0.0 - 4.0 [facility] Comment on above: Performed By: #### 2 04889 #### [facility],[address] [place] [address] 36708 Erythrocyte distribution width (RBC) [Ratio] 13.0 % Normal 12.0 - 15.6 [facility] Comment on above: Performed By: #### 2 65857 #### [facility],[address] [place], [place] [address] Hematocrit (Bld) [Volume fraction] 44.3 % Normal 40.0 - 52.0 [facility] Comment on above: Performed By: #### 2 14444 #### [facility],[address] [place] [address] 36997 Hemoglobin (Bld) [Mass/Vol] 14.6 g/dL Normal 13.0 - 17.5 [facility] Comment on above: Performed By: #### 2 51411 #### [facility],[address] [place] [address] 67827 Lymphocytes/100 WBC (Bld) 48 % High 20 - 40 [facility] Comment on above: Performed By: #### 2 52865 #### [facility],[address] [place] [address] 47048 MANUAL DIFF SEE BELOW Normal [facility] Comment on above: Performed By: #### 2 33403 #### [facility],[address] [place] [address] 03214 MCH (RBC) [Entitic mass] 32 pg Normal 27 - 33 [facility] Comment on above: Performed By: #### 2 86816 #### [facility],[address] [place] [address] 72225 MCHC 33 X10 3 Normal 32 - 36 [facility] Comment on above: Performed By: #### 2 77037 #### [facility],[address] [place] [address] 14826 MCV (RBC) [Entitic vol] 97 fL Normal 81 - 98 [facility] Comment on above: Performed By: #### 2 52786 #### [facility],[address] [place] [address] 77428 MONOS 3 % Normal 0 - 8 [facility] Comment on above: Performed By: #### 2 05496 #### [facility],[address] [place] [address] Morphology Carson (Bld) [Interp] REVIEWED Normal [facility] Comment on above: Result Comment: {CD] Performed By: #### 2 52131 #### [facility],[address] [place] [address] 25540 PLATELET 258 x10EE3/UL Normal 150 - 450 [facility] Comment on above: Performed By: #### 2 54789 #### [facility],[address] [place] [address] 15083 Platelet mean volume (Bld) [Entitic vol] 7.9 fL Normal 6.4 - 10.5 [facility] Comment on above: Result Comment: AUTO MATED DIFFERENTIAL Performed By: #### 2 85208 #### [facility],[address] [place] [address] 09445 RBC 4.56 x 10EE6/UL Normal 4.50 - 6.00 [facility] Comment on above: Performed By: #### 2 97506 #### [facility],[address] [place], [place] [address] SEGS 43 % Low 50 - 70 [facility] Comment on above: Performed By: #### 2 26969 #### [facility],[address] [place] [address] 82833 WBC 7.2 x 10EE3/UL Normal 4.5 - 10.8 [facility] Comment on above: Performed By: #### 2 20380 #### [facility],[address] [place] [address] 56749 CHEST 1 VIEWon 10-06-2021 CHEST 1 VIEW [place] [address] Patient: SUZANNE GARSIA Phone#: : 1970 Age: 50 Gender: M Pt. Type: ER Account: [id number] Location: [facility] Ordering: CHRISTINA JOEL Exam Date: 10/06/2021/20:09 Family Phys: Charge Code: [id number] Physician: Whitfield Order #: [id number] DLP Dose#: PROCEDURE: X-RAY CHEST 1 VIEW COMPARISON: None. INDICATIONS: Syncope. FINDINGS: LUNGS: Normal. No significant pulmonary parenchymal abnormalities. VASCULATURE: Normal. Unremarkable pulmonary vasculature. CARDIAC: Normal. No cardiac silhouette abnormality or cardiomegaly. MEDIASTINUM: Normal. No visible mass or adenopathy. PLEURA: Normal. No effusion or pleural thickening. BONES: Normal. No fracture or visible bony lesion. OTHER: Negative. CONCLUSION: No acute disease. Dictated by: Marilee Dallas MD on 10/07/2021 at 8:44 Approved by: Marilee Dallas MD on 10/07/2021 at 8:45 Normal [facility] CMP with eGFRon 10-06-2021 AGE 50 years Normal [facility] Comment on above: Performed By: #### 2 23164 #### [facility],[address] [place] [address] 38738 Albumin [Mass/Vol] 3.9 g/dL Normal 3.4 - 5.0 [facility] Comment on above: Performed By: #### 2 26474 #### [facility],[address] [place] [address] 61195 Albumin/Globulin [Mass ratio] 1.0 {ratio} Normal 0.9 - 1.6 [facility] Comment on above: Performed By: #### 2 02490 #### [facility],[address] [place] [address] 06993 ALK PHOS 62 U/L Normal 46 - 116 [facility] Comment on above: Performed By: #### 2 64507 #### [facility],[address] [place] [address] 39543 ALT [Catalytic activity/Vol] 43 U/L Normal 16 - 63 [facility] Comment on above: Performed By: #### 2 42491 #### [facility],[address] [place] [address] 97420 Anion gap [Moles/Vol] 16 mmol/L Normal 10 - 20 [facility] Comment on above: Performed By: #### 2 45072 #### [facility],[address] [place] [address] 62088 AST [Catalytic activity/Vol] 18 U/L Normal 15 - 37 [facility] Comment on above: Performed By: #### 2 13974 #### [facility],[address] [place] [address] 43227 B/C RATIO 13 ratio Normal 0 - 30 [facility] Comment on above: Performed By: #### 2 69600 #### [facility],[address] [place] [address] 48805 Bilirubin [Mass/Vol] 0.2 mg/dL Normal 0.2 - 1.0 [facility] Comment on above: Performed By: #### 2 83105 #### [facility],[address] [place] [address] 20813 Calcium [Mass/Vol] 8.4 mg/dL Low 8.5 - 10.1 [facility] Comment on above: Performed By: #### 2 55251 #### [facility],[address] [place] [address] 71592 Chloride [Moles/Vol] 102 mmol/L Normal 98 - 107 [facility] Comment on above: Performed By: #### 2 83923 #### [facility],[address] [place] [address]133 CMP with eGFR Normal [facility] Comment on above: Result Comment: COMP REHENSIVE METABOLIC PANEL Performed By: #### 2 25480 #### [facility],[address] [place] [address] 08420 CO2 [Moles/Vol] 28.0 mmol/L Normal 21.0 - 32.0 [facility] Comment on above: Performed By: #### 2 46401 #### [facility],[address] [place] [address] Creatinine [Mass/Vol] 1.36 mg/dL High 0.70 - 1.30 [facility] Comment on above: Performed By: #### 2 02630 #### [facility],[address] [place] [address] eGFR 55 ML/MINUTE Low 60 - 999 [facility] Comment on above: Performed By: #### 2 92635 #### [facility],[address] [place] [address] 67910 GFR/1.73 sq M.predicted among non-blacks MDRD (S/P/Bld) [Vol rate/Area] mL/min/{1.73_m2} Normal 60 - 999 [facility] Comment on above: Result Comment: ACCO RDING TO THE NATIONAL KIDNEY DISEASE EDUCATION PROGRAM(NKDE), A NORMAL eGFR IS A VALUE GREATER THAN OR EQUAL TO 60 ML/MIN/1.73 SQ METERS. CHRONIC KIDNEY DISEASE: <60mL/MIN/1.73 SQ METERS KIDNEY FAILURE: <15mL/MIN/1.73 SQ METERS THIS TEST SHOULD ONLY BE USED FOR PATIENTS 18 YEARS OF AGE AND OLDER. Performed By: #### 2 93042 #### [facility],[address],[place] [address] Globulin (S) [Mass/Vol] 3.8 g/dL Normal 1.5 - 3.8 [facility] Comment on above: Performed By: #### 2 24970 #### [facility],[address] [place] [address] 20116 Glucose [Mass/Vol] 95 mg/dL Normal 74 - 106 [facility] Comment on above: Performed By: #### 2 65931 #### [facility],[address] [place] [address] 76299 Potassium [Moles/Vol] 3.5 mmol/L Normal 3.5 - 5.1 [facility] Comment on above: Performed By: #### 2 30036 #### [facility],[address] [place] [address] 70961 Protein [Mass/Vol] 7.7 g/dL Normal 6.4 - 8.2 [facility] Comment on above: Performed By: #### 2 66567 #### [facility],[address] [place] [address] 95749 Sodium [Moles/Vol] 142 mmol/L Normal 136 - 145 [facility] Comment on above: Performed By: #### 2 17527 #### [facility],[address] [place] [address] 54734 Urea nitrogen [Mass/Vol] 17 mg/dL Normal 7 - 18 [facility] Comment on above: Performed By: #### 2 62815 #### [facility],[address] [place] [address] BRAIN W/O CONTRASTon 11-0 CT BRAIN W/O CONTRAST [place] [address] Patient: SUZANNE GARSIA Phone#: : 1970 Age: 50 Gender: M Pt. Type: ER Account: [id number] Location: 052 Ordering: CHRISTINA JOEL Exam Date: 10/06/202121:01 Family Phys: Charge Code: 360934 Physician: Whitfield Order #: [id number] DLP Dose#: 57.5mGy PROCEDURE: CT BRAIN WITHOUT CONTRAST COMPARISON: None. INDICATIONS: Syncope. TECHNIQUE: CT images were obtained without contrast material. All CT scans at this facility use dose modulation, iterative reconstruction, and/or weight based dosing when appropriate to reduce radiation dose to as low as reasonably achievable. IV CONTRAST: No IV contrast used,0ml TOTAL DOSE: 57.5 CTDIvol(mGy) FINDINGS: CEREBRUM: Age-appropriate atrophy is present, without visible acute hemorrhage or lesion. CEREBELLUM: No edema, hemorrhage, mass, acute infarction, or inappropriate atrophy. BRAINSTEM: No edema, hemorrhage, mass, acute infarction, or inappropriate atrophy. CSF SPACES: Ventricles, cisterns, and sulci are appropriate for age. No hydrocephalus, subarachnoid hemorrhage, or mass. SKULL: No mass or other significant visible lesion. SINUSES: Mucosal thickening is present in the ethmoid sinuses. ORBITS: Limited views are unremarkable. OTHER: Negative. CONCLUSION: No acute disease. Dictated by: Marilee Dallas MD on 10/07/2021 at 8:54 Approved by: Marilee Dallas MD on 10/07/2021 at 8:55 Normal [facility] CT CERVICAL W/O CONTRASTon 1 12-06-2020 CT CERVICAL W/O CONTRAST [place] [address] Patient: SUZANNE GARSIA Phone#: : 1970 Age: 50 Gender: M Pt. Type: ER Account: [id number] Location: 052 Ordering: CHRISTINA JOEL Exam Date: 10/06/2021/21:01 Family Phys: Charge Code: 078460 Physician: Whitfield Order #: [id number] DLP Dose#: 14.6mGy PROCEDURE: CT CERVICAL WITHOUT CONTRAST COMPARISON: None. INDICATIONS: Syncope. TECHNIQUE: Multi-planar CT images were created without intravenous contrast. All CT scans at this facility use dose modulation, iterative reconstruction, and/or weight based dosing when appropriate to reduce radiation dose to as low as reasonably achievable. IV CONTRAST: No IV contrast used,0ml TOTAL DOSE: 14.6 CTDIvol(mGy) FINDINGS: CRANIOCERVICAL AREA: Normal foramen magnum with no Chiari malformation. PARASPINAL AREA: Normal with no visible mass. BONES: No fracture, pars defect, or osseous lesion. There is straightening of the normal cervical lordosis. CERVICAL DISC LEVELS: C2-C3: No significant disc/facet abnormality, spinal stenosis, or foraminal stenosis. C3-C4: No significant disc/facet abnormality, spinal stenosis, or foraminal stenosis. C4-C5: No significant disc/facet abnormality, spinal stenosis, or foraminal stenosis. C5-C6: Mild disc space narrowing is present. Foramina and spinal canal are patent. C6-C7: There is mild disc space narrowing. The foramina and spinal canal are patent. C7-T1: No significant disc/facet abnormality, spinal stenosis, or foraminal stenosis. CONCLUSION: 1. Mild degenerative changes present. There is no evidence of acute bone abnormality. Continued Report - Page 2 of 2 Patient: SUZANNE GARSIA Phone#: : 1970 Age: 50 Gender: M Pt. Type: ER Account: [id number] Location: 052 Ordering: CHRISTINA JOEL Exam Date: 10/06/2021/21:01 Family Phys: Charge Code: 191854 Physician: Whitfield Order #: [id number] DLP Dose#: 14.6mGy Dictated by: Marilee Dallas MD on 10/07/2021 at 8:55 Approved by: Marilee Dallas MD on 10/07/2021 at 8:57 Normal [facility] CULTURE BLOODon 10-06-2021 Microscopic examination of blood, culture CULTURE BLOOD CULTURE BLOOD SET: 1 of 2 24HOUR REPORT NEGATIVE 48HOUR REPORT NEGATIVE 72HOUR REPORT NEGATIVE M I C R O B I O L O G Y R E P O R T FINAL Antimicrobial Susceptibility and Organism Identification Report Specimen Number : [id number] Requested : 10/06/21 Specimen Source : BLOOD Collected : 10/06/21 20:25 [facility] : EMERGENCY ROOM Received : 10/06/21 20:25 Requesting Physician : TRAVON BOWDEN ------ Patient/Specimen Tests and Comments Specimen Comments FINAL REPORT: NO GROWTH AT 5 DAYS ------ Tech : Source : BLOOD ID # : [id number] FINAL Report Date : / / : Collected : 10/06/21 20:25 10/12/[email or web address]. 10/12/[email or web address].[employer] PLETE 1 of 2 NEGATIVE NEGATIVE NEGATIVE Normal [facility] Comment on above: Performed By: #### 2 73851 #### [facility],[address] [place], [place] [address] Microscopic examination of blood, culture CULTURE BLOOD CULTURE BLOOD SET: 2 of 2 24HOUR REPORT NEGATIVE 48HOUR REPORT NEGATIVE 72HOUR REPORT NEGATIVE M I C R O B I O L O G Y R E P O R T FINAL Antimicrobial Susceptibility and Organism Identification Report Specimen Number : [id number] Requested : 10/06/21 Specimen Source : BLOOD Collected : 10/06/21 20:20 [facility] : EMERGENCY ROOM Received : 10/06/21 20:20 Requesting Physician : TRAVON BOWDEN ------ Patient/Specimen Tests and Comments Specimen Comments FINAL REPORT: NO GROWTH AT 5 DAYS ------ Tech : Source : BLOOD ID # : [id number] FINAL Report Date : / / : Collected : 10/06/21 20:20 10/12/21.[employer]. 10/12/21.[employer] PLETE 2 of 2 NEGATIVE NEGATIVE NEGATIVE Normal [facility] Comment on above: Performed By: #### 2 [id number] #### [facility],[address] [place] [address] 74770 D-DIMER, QUANTITATIVEon D-DIMER QUANT 219 ng/ml Normal 0 - 230 [facility] Comment on above: Performed By: #### 2 48367 #### [facility],[address] [place] [address] 82613 D-DIMER, QUANTITATIVE Normal [facility] Comment on above: Result Comment: NAOMI T D-DIMER Performed By: #### 2 14451 #### [facility],[address] [place] [address] 00388 LACTATEon 10-06-2021 Lactate [Moles/Vol] 0.9 mmol/L Normal 0.4 - 2.0 [facility] Comment on above: Performed By: #### 2 95812 #### [facility],[address] [place] [address] 63146 NT-proBNPon 10-06-2021 Natriuretic peptide B (Bld) [Mass/Vol] 42 pg/mL Normal 0 - 125 [facility] Comment on above: Performed By: #### 2 95998 #### [facility],[address] [place] [address] 05802 TROPONIN I, HIGH SENSITIVITY on 10-06-2021 HS TROPONIN 5.7 pg/mL Normal 0.0 - 76.2 [facility] Comment on above: Performed By: #### 2 14854 #### [facility],[address] [place] [address] 61595 URINALYSISon 10-06-2021 Bilirubin Ql (U) Negative Normal NORMAL: NEGATIVE [facility] Comment on above: Performed By: #### 2 59649 #### [facility],[address] [place] [address] 53138 Clarity (U) clear Normal NORMAL: CLEAR [facility] Comment on above: Performed By: #### 2 45927 #### [facility],[address] [place] [address] 11798 Color (U) yellow Normal NORMAL: YELLOW [facility] Comment on above: Performed By: #### 2 19805 #### [facility],[address] [place] [address] 81385 Glucose Ql (U) NORM Normal NORMAL: NORMAL [facility] Comment on above: Performed By: #### 2 82605 #### [facility],[address] [place] [address] 98875 Hemoglobin Ql (U) Negative Normal NORMAL: NEGATIVE [facility] Comment on above: Performed By: #### 2 18198 #### [facility],[address] [place] [address] 21298 Ketone Negative Normal NORMAL: NEGATIVE [facility] Comment on above: Performed By: #### 2 91175 #### [facility],[address] [place] [address] 31725 Leukocytes Negative Normal NORMAL: NEGATIVE [facility] Comment on above: Performed By: #### 2 61638 #### [facility],[address] [place] [address] 59599 Nitrite Ql (U) Negative Normal NORMAL: NEGATIVE [facility] Comment on above: Performed By: #### 2 97443 #### [facility],[address] [place] [address] 84256 pH (U) 7 [pH] Normal NORMAL: 5.0-8.0 [facility] Comment on above: Performed By: #### 2 84232 #### [facility],[address] [place] [address] 18977 Protein Ql (U) Negative Normal NORMAL: NEGATIVE [facility] Comment on above: Performed By: #### 2 71092 #### [facility],[address] [place] [address] 30624 Sp [place] 1.015 Normal NORMAL: 1.010-1.030 [facility] Comment on above: Performed By: #### 2 57548 #### [facility],[address] [place] [address] 19475 Specimen Type UNSPECIFIED Normal [facility] Comment on above: Performed By: #### 2 81497 #### [facility],[address] [place] [address] 21273 Urinalysis dipstick W Reflex Microscopic panel (U) NOT INDICATED Normal [facility] Comment on above: Performed By: #### 2 35146 #### [facility],[address] [place] [address] 95979 Urobilinog NORM Normal NORMAL: NORMAL [facility] Comment on above: Performed By: #### 2 66159 #### [facility],[address] [place] [address] 85583 Folates, (Folic Acid)on Folates, (Folic Acid) 18.90 ng/mL Normal 3.1-55.4 [facility] Work Phone: Comment on above: Slight Hemolysis, Re sult may be falsely increased. Is Patient Taking Vi tamins or Folic Acid Supplements? [facility] [address] [place], [place], [address] Retic Panelon 12-01-2018 Retic Panel 32.5 pg Normal 30-35 [facility] Work Phone: Comment on above: [facility] [address] [place], [phone] Retic Panel 12.10 % Normal 3.00-15.90 [facility] Work Phone: Comment on above: [facility] [address] [place], [id number] Retic Panel 1.44 % Normal 0.5-1.5 [facility] Work Phone: Comment on above: [facility] [address] [place], [id number] Retic Panel 2.4 % Normal 1.0-7.9 [facility] Work Phone: Comment on above: Low PLT + Low IPF moore ggest a bone marrow production disorderLow PLT + high IPF suggests peripheral destruction(e.g.ITP, TTP, HIT, DIC, autoimmune) or bone marrow recoveryTrending of serial IPF measurements is recommended whenevaluating for bone marrow responesValue above normal range indicates an increase in RBCcellular response from bone marrow. [facility] [address] [place], [id number] Vitamin B12on 12-01-2018 Cobalamin (Vitamin B12) mass conc 555 pg/mL Normal 211-911 [facility] Work Phone: Comment on above: [facility] [address] [place], [place], [phone] CBC W/Diff, Automatedon 12-0 Absolute Neut 4.6 {X10_3/uL} Normal 2.0-7.7 [facility]h [facility] Work Phone: Comment on above: [facility] [address] [place], [place], [id number] Basophils/100 WBC (Bld) 0.6 % Normal 0-1 [facility] Work Phone: Comment on above: [facility] [address] [place], [address] Basophils/100 WBC Auto (Bld) 0.6 % Normal 0-1 [facility] Work Phone: Eosinophils/100 WBC (Bld) 2.2 % Normal 0-5 [facility] Work Phone: Comment on above: [facility] [address] [place], [address] Eosinophils/100 WBC Auto (Bld) 2.2 % Normal 0-5 [facility] Work Phone: Erythrocyte distribution width Auto Ratio (RBC) 12.4 % Normal 11.6-14.6 [facility] Work Phone: Erythrocyte distribution width Ratio (RBC) 12.4 % Normal 11.6-14.6 [facility] Work Phone: Comment on above: [place] [address] [place], [address] Hematocrit Auto Volume Fraction (Bld) 44.3 % Normal 40-54 [facility] Work Phone: Hematocrit Volume Fraction (Bld) 44.3 % Normal 40-54 [facility] Work Phone: Comment on above: [place] [address] [place], [address] Hemoglobin mass conc (Bld) 14.8 g/dL Normal 13.0-16.5 [facility] Work Phone: Comment on above: [facility] [address] [place], [address] IM GRAN % 0.100 % Normal 0.0-0.9 [facility] Work Phone: Comment on above: IG% - Immature Granu locytes (promyelocytes, myelocytes andmetamyelocytes) > 1% indicates that a LEFT SHIFT is Present. [facility] [address] [place], [address] Lymphocytes #/vol (Bld) 1.48 {X10_3/ul} Normal 0.83-4.51 [facility] Work Phone: Comment on above: [facility] [address] [place], [address] Lymphocytes/100 WBC (Bld) 21.8 % Normal 19-41 [facility] Work Phone: Comment on above: [facility] [address] [place], [address] Lymphocytes/100 WBC Auto (Bld) 21.8 % Normal 19-41 [facility] Work Phone: MCH Auto Entitic mass (RBC) 32.1 pg Abnormal 27.0-32.0 [facility] Work Phone: MCH Entitic mass (RBC) 32.1 pg Abnormal 27.0-32.0 [facility] Work Phone: Comment on above: [place] [address] [place], [address] MCHC Auto mass conc (RBC) 33.4 {g/gl} Normal 32-36 [facility] Work Phone: MCHC mass conc (RBC) 33.4 {g/gl} Normal 32-36 [facility] Work Phone: Comment on above: [facility] [address] [place], [address] MCV Auto Entitic volume (RBC) 96.1 fL Abnormal 80-94 [facility] Work Phone: MCV Entitic volume (RBC) 96.1 fL Abnormal 80-94 [facility] Work Phone: Comment on above: [facility] [address] [place], [address] Monocytes/100 WBC (Bld) 7.8 % Normal 0-10 [facility] Work Phone: Comment on above: [facility] [address] [place], [address] Monocytes/100 WBC Auto (Bld) 7.8 % Normal 0-10 [facility] Work Phone: Neutrophils/100 WBC (Bld) 67.5 % Normal 47-70 [facility] Work Phone: Comment on above: [facility] [address] [place], [address] Neutrophils/100 WBC Auto (Bld) 67.5 % Normal 47-70 [facility] Work Phone: Platelet mean volume Auto Entitic volume (Bld) 9.6 fL Normal 6.2-12.0 [facility] Work Phone: Platelet mean volume Entitic volume (Bld) 9.6 fL Normal 6.2-12.0 [facility] Work Phone: Comment on above: [place] [address] [place], [address] Platelets #/vol (Bld) 254 10*3/uL Normal 150-450 [facility] Work Phone: Comment on above: [facility] [address] [place], [address] Platelets Auto #/vol (Bld) 254 10*3/uL Normal 150-450 [facility] Work Phone: RBC #/vol (Bld) 4.61 {M/mm3} Normal 4.6-6.2 Compreh [facility] Work Phone: Comment on above: [facility] [address] [place], [address] RBC Auto #/vol (Bld) 4.61 {M/mm3} Normal 4.6-6.2 [facility] Work Phone: RDW SD 42.8 fL Normal 35.1-43.9 [facility] Work Phone: Comment on above: [facility] [address] [place], [place], [phone] WBC #/vol (Bld) 6.8 10*3/uL Normal 4.4-11.0 Comprehe ns[facility] Work Phone: Comment on above: [facility] [address] [place], [address] WBC Auto #/vol (Bld) 6.8 10*3/uL Normal 4.4-11.0 [facility] Work Phone: CBC W/Diff, Automated 0.100 % Normal 0.0-0.9 [facility] Work Phone: Comment on above: IG% - Immature Granu locytes (promyelocytes, myelocytes andmetamyelocytes) > 1% indicates that a LEFT SHIFT is Present. CBC W/Diff, Automated 42.8 fL Normal 35.1-43.9 [facility] Work Phone: CBC W/Diff, Automated 1.48 {X10_3/ul} Normal 0.83-4.51 [facility] Work Phone: CBC W/Diff, Automated 4.6 {X10_3/uL} Normal 2.0-7.7 [facility] Work Phone: Comprehensive Met[facility] Prof [facility] 11-06-2018 Comprehensive metabolic 2000 panel 0.8 {RATIO} Abnormal 0.9-2.4 [facility] Work Phone: Comment on above: [facility] [address] [place], [place], [phone] [facility] 2000 panel 0.40 mg/dL Normal 0.20-1.00 [facility] Work Phone: Comment on above: [facility] [address] [place], [phone] Comprehensive metabolic 2000 panel 14 mg/dL Normal 7-18 [facility] Work Phone: Comment on above: [facility] [address] [place], [address] Comprehensive [facility] 2000 panel 1.04 mg/dL Normal 0.70-1.30 [facility] Work Phone: Comment on above: The validity of the calculated GFR AND GFRAA in patients over70 years has not been determined. Clinical correlation isessential. [facility] [address] [place], [address] Comprehensive [facility] 2000 panel 81 mL/min Normal [facility] Work Phone: Comment on above: Non- GFR Calc [facility] [address] [place], [address] Comprehensive metabolic 2000 panel 98 mL/min Normal [facility] Work Phone: Comment on above: GFR Calc [facility] [address] [place], [address] Comprehensive [facility] 2000 panel 13.5 {RATIO} Normal 10-20 [facility] Work Phone: Comment on above: [facility] [address] [place], [address] Comprehensive metabolic 2000 panel 7.4 g/dL Normal 6.4-8.2 [facility] Work Phone: Comment on above: [facility] [address] [place], [address] Comprehensive [facility] 2000 panel 3.3 g/dL Normal 3.2-5.0 [facility] Work Phone: Comment on above: [facility] [address] [place], [address] Comprehensive metabolic 2000 panel 4.1 g/dL Normal 2.2-4.2 [facility] Work Phone: Comment on above: [facility] [address] [place], [address] Comprehensive [facility] 2000 panel 93 mg/dL Normal 74-106 [facility] Work Phone: Comment on above: Please note revised GLUCOSE reference range msujwslhi85/02/2018. [facility] yvonne [address] [place], [place], [address] [facility] 2000 panel 8.5 mg/dL Normal 8.5-10.1 [facility] Work Phone: Comment on above: [facility] [address] [place], [address] Comprehensive [facility] 2000 panel 18 U/L Normal 15-37 [facility] Work Phone: Comment on above: [facility] [address] [place], [place], [address] Comprehensive metabolic 2000 panel 58 U/L Normal 45-117 [facility] Work Phone: Comment on above: [facility] [address] [place], [address] Comprehensive [facility] 2000 panel 32 U/L Normal 16-61 [facility] Work Phone: Comment on above: [facility] [address] [place], [place], [address] [facility] 2000 panel 142 mmol/L Normal 136-145 [facility] Work Phone: Comment on above: [facility] [address] [place], [address] Comprehensive metabolic 2000 panel 4.3 mmol/L Normal 3.5-5.1 [facility] Work Phone: Comment on above: [facility] [address] [place], [place], [address] Comprehensive metabolic 2000 panel 107 mmol/L Normal 98-107 [facility] Work Phone: Comment on above: [facility] [address] [place], [place], [address] Comprehensive [facility] 2000 panel 6 1 Normal 5-15 [facility] Work Phone: Comment on above: [facility] [address] [place], [place], [address] Comprehensive [facility] 2000 panel 29.0 mmol/L Normal 21.0-32.0 [facility] Work Phone: Comment on above: [facility] [address] [place], [place], [address] Lipid Profileon 11-06-2018 Cholesterol in HDL mass conc 54 mg/dL Normal [facility] Work Phone: Comment on above: The drugs N-Acetylcy steine and Metamizole may falselydepress this assay. Reference Range HDL <40 mg/dL Low HDL Cholesterol HDL >or= 60 mg/dL High HDL Cholesterol [facility] [address] [place], [place], [address] Cholesterol in LDL mass conc 119 mg/dL Normal 0-130 [facility] Work Phone: Comment on above: [facility] [address] [place], [place], [address] Cholesterol mass conc 191 mg/dL Normal [facility] Work Phone: Comment on above: <200 mg/dL Desirable 200-240 mg/dL Borderline >240 mg/dL High Risk [facility] [address] [place], [place], [address] Triglyceride mass conc 90 mg/dL Normal [facility] Work Phone: Comment on above: The drugs N-Acetylcy steine and Metamizole may falselydepress this assay.Serum Triglycerides Reference Interval Normal <150 mg/dL Borderline high 150 - 199 mg/dL High 200 - 499 mg/dL Very High > or = 500 mg/dL [facility] [address] [place], [place], [id number] Lipid Profile 18 mg/dL Normal 5-40 Comprehen[facility] Work Phone: Comment on above: [facility] [address] [place], [place], [address] PSA,Total - Annual Screenon 11-06-2018 Prostate specific Ag mass conc 0.84 ng/mL Normal 0.00-4.00 [facility] Work Phone: Comment on above: This test was perfor med using the TPSA assay method for thePolicard chemistry system. Values obtained with differentassay methods cannot be used interchangably.When changing PSA assays in the course of monitoring apatient, additional sequential testing should be carriedout to confirm baseline values. [facility] [address] [place], [address] Thyroid Stim Hormone (TSH)on 11-06-2018 Thyrotropin Qn 1.95 {uIU/mL} Normal 0.358-3.74 [facility] Work Phone: Comment on above: [facility] [address] [place], [place], [address] Blood Glucose , Office ([phone])Ordered By: Curt Colon on 11-01-2018 Glucose Glucometer molar conc (BldC) 95 1 Normal [facility] Work Phone: HgA1C , Office ([phone])Ordere d By: Curt Colon on 11-01-2018 Hemoglobin A1c/Hemoglobin.tota l mass fraction (Bld) 5.5 % Normal 4.6 - 7.1 [facility] Work Phone: Vital Signs Date Time Vital Sign Value Performing Clinician Facility 04-13-2023 14:52-0400 Diastolic Blood Pressure Non-Invasive 100 1 SUHAS RODRIGUEZ MD [facility] 04-13-2023 14:52-0400 Heart rate 83 /min SUHAS RODRIGUEZ MD [facility] 04-13-2023 14:52-0400 Respiratory rate 16 /min SUHAS RODRIGUEZ MD [facility] 04-13-2023 14:52-0400 Systolic Blood Pressure Non-Invasive 154 1 SUHAS RODRIGUEZ MD [facility] 04-13-2023 13:14-0400 Body temperature 98.06 [degF] SUHAS RODRIGUEZ MD [facility] 04-13-2023 13:14-0400 Diastolic Blood Pressure Non-Invasive 102 1 SUHAS RODRIGUEZ MD [facility] 04-13-2023 13:14-0400 Heart rate 82 /min SUHAS RODRIGUEZ MD [facility] 04-13-2023 13:14-0400 Respiratory rate 18 /min SUHAS RODRIGUEZ MD [facility] 04-13-2023 13:14-0400 Systolic Blood Pressure Non-Invasive 185 1 SUHAS RODRIGUEZ MD [facility] 12-03-2022 14:03-0500 Body height 175.26 cm Tomeka Harvey [facility]; [facility] Work Phone: Comment on above: Pt did not report all vitals 12-03-2022 14:03-0500 Body mass index (BMI) [Ratio] 35.03 kg/m2 Tomeka Harvey [facility]; [facility] Work Phone: Comment on above: Pt did not report all vitals 12-03-2022 14:03-0500 Body surface area Derived from formula 2.22 m2 Tomeka Harvey [facility]; [facility] Work Phone: Comment on above: Pt did not report all vitals 12-03-2022 14:03-0500 Body temperature 100 [degF] Tomeka Harvey [facility]; [facility] Work Phone: Comment on above: Method: Temporal Pt did not report al l vitals 12-03-2022 14:03-0500 Body weight 107.59 kg Tomeka Harvey MARIO [facility]; [facility] Work Phone: Comment on above: Pt did not report all vitals 11-18-2021 15:58-0500 Body height 175.26 cm Curt Shah LPN [facility]; [facility] Work Phone: 11-18-2021 15:58-0500 Body mass index (BMI) [Ratio] 35.03 kg/m2 Curt Shah LPN [facility]; [facility] Work Phone: 11-18-2021 15:58-0500 Body surface area Derived from formula 2.22 m2 Curt Shah LPN [facility]; [facility] Work Phone: 11-18-2021 15:58-0500 Body temperature 98.6 [degF] Curt Shah LPN [facility]; [facility] Work Phone: Comment on above: Method: Infrared 11-18-2021 15:58-0500 Body weight 107.59 kg Curt Shah LPN [facility]; [facility] Work Phone: 11-18-2021 15:58-0500 Diastolic blood pressure 78 mm[Hg] Curt Shah LPN [facility]; [facility] Work Phone: Comment on above: Patient Position: Sitting; Cuff Location : Left Arm; Cuff Size: Standard 11-18-2021 15:58-0500 Heart rate 84 /min Curt Shah LPN [facility]; [facility] Work Phone: Comment on above: Pattern: Regular 11-18-2021 15:58-0500 Respiratory rate 16 /min Curt Shah LPN [facility]; [facility] Work Phone: Comment on above: Pattern: Unlabored 11-18-2021 15:58-0500 SaO2% (BldA) [Mass fraction] 98 % Curt Shah LPN [facility]; [facility] Work Phone: Comment on above: Room air 11-18-2021 15:58-0500 Systolic blood pressure 140 mm[Hg] Curt Shah LPN [facility]; [facility] Work Phone: Comment on above: Patient Position: Sitting; Cuff Location : Left Arm; Cuff Size: Standard 10-18-2021 10:06-0500 Body height 175.26 cm Curt Shah LPN [facility]; [facility] Work Phone: 10-18-2021 10:06-0500 Body mass index (BMI) [Ratio] 34.82 kg/m2 Curt Shah LPN [facility]; [facility] Work Phone: 10-18-2021 10:06-0500 Body surface area Derived from formula 2.22 m2 Curt Shah LPN [facility]; [facility] Work Phone: 10-18-2021 10:06-0500 Body temperature 97.6 [degF] Curt Shah LPN [facility]; [facility] Work Phone: Comment on above: Method: Infrared 10-18-2021 10:06-0500 Body weight 106.96 kg Curt Shah LPN [facility]; [facility] Work Phone: 10-18-2021 10:06-0500 Diastolic blood pressure 82 mm[Hg] Curt Shah LPN [facility]; [facility] Work Phone: Comment on above: Patient Position: Sitting; Cuff Location : Left Arm; Cuff Size: Standard 10-18-2021 10:06-0500 Heart rate 83 /min Curt Shah LPN [facility]; [facility] Work Phone: Comment on above: Pattern: Regular 10-18-2021 10:06-0500 Respiratory rate 16 /min Curt Shah LPN [facility]; [facility] Work Phone: Comment on above: Pattern: Unlabored 10-18-2021 10:06-0500 SaO2% (BldA) [Mass fraction] 96 % Curt Shah LPN [facility]; [facility] Work Phone: Comment on above: Room air 10-18-2021 10:06-0500 Systolic blood pressure 148 mm[Hg] Curt Shah LPN [facility]; [facility] Work Phone: Comment on above: Patient Position: Sitting; Cuff Location : Left Arm; Cuff Size: Standard 12-01-2018 15:13-0500 BMI (Body Mass Index) 34.57 kg/m2 Juanita Amato [facility] Work Phone: 12-01-2018 15:13-0500 Body Temperature 97.1 [degF] Juanita Amato [facility] Work Phone: Comment on above: Method: Axillary 12-01-2018 15:13-0500 Body weight 106.2 kg Juanita Amato [facility]; [facility] Work Phone: 12-01-2018 15:13-0500 BP Diastolic 84 mm[Hg] Juaniat Amato [facility] Work Phone: Comment on above: Patient Position: Sitting; Cuff Location : Left Arm; Cuff Size: Standard 12-01-2018 15:13-0500 BP Systolic 120 mm[Hg] Juanita Amato [facility] Work Phone: Comment on above: Patient Position: Sitting; Cuff Location : Left Arm; Cuff Size: Standard 12-01-2018 15:13-0500 BSA (Body Surface Area) 2.21 m2 Juanita Amato [facility] Work Phone: 12-01-2018 15:13-0500 Height 175.26 cm Juanita Amato [facility] Work Phone: 12-01-2018 15:13-0500 Pulse (Heart Rate) 70 /min Juanita Amato [facility] Work Phone: Comment on above: Pattern: Regular 12-01-2018 15:13-0500 Pulse Oximetry 96 % Mi Venegas [facility] Work Phone: Comment on above: Room air 12-01-2018 15:13-0500 Respiratory Rate 16 /min Juanita Amato [facility] Work Phone: Comment on above: Pattern: Unlabored 12-01-2018 15:13-0500 SaO2% (BldA) [Mass fraction] 96 % Juanita Amato [facility]; [facility] Work Phone: Comment on above: Room air 12-01-2018 15:13-0500 Weight 106.2 kg Mi Venegas [facility] Work Phone: 11-01-2018 15:39-0500 BMI (Body Mass Index) 33.72 kg/m2 Juanita Amato [facility] Work Phone: 11-01-2018 15:39-0500 Body Temperature 97.4 [degF] Juanita Amato [facility] Work Phone: Comment on above: Method: Temporal 11-01-2018 15:39-0500 Body weight 103.59 kg Juanita Amato [facility]; [facility] Work Phone: 11-01-2018 15:39-0500 BP Diastolic 84 mm[Hg] Juanita Amato [facility] Work Phone: Comment on above: Patient Position: Sitting; Cuff Location : Left Arm; Cuff Size: Standard 11-01-2018 15:39-0500 BP Systolic 130 mm[Hg] Juanita Amato [facility] Work Phone: Comment on above: Patient Position: Sitting; Cuff Location : Left Arm; Cuff Size: Standard 11-01-2018 15:39-0500 BSA (Body Surface Area) 2.19 m2 Juanita Amato [facility] Work Phone: 11-01-2018 15:39-0500 Height 175.26 cm Juanita Amato [facility] Work Phone: 11-01-2018 15:39-0500 Pulse (Heart Rate) 74 /min Juanita Amato [facility] Work Phone: Comment on above: Pattern: Regular 11-01-2018 15:39-0500 Pulse Oximetry 97 % Mi Venegas [facility] Work Phone: Comment on above: Room air 11-01-2018 15:39-0500 Respiratory Rate 16 /min Juanita Amato [facility] Work Phone: Comment on above: Pattern: Unlabored 11-01-2018 15:39-0500 SaO2% (BldA) [Mass fraction] 97 % Juanita Amato [facility]; [facility] Work Phone: Comment on above: Room air 11-01-2018 15:39-0500 Weight 103.59 kg [facility] Hamm [facility] Work Phone: Encounters Encounter Date Encounter Type Care Provider Facility Start: 04-13-2023 End: 04-13-2023 Emergency department patient visit SUHAS RODRIGUEZ MD Facility:B Start: 04-13-2023 End: 04-13-2023 Emergency department patient visit SUHAS RODRIGUEZ MD [facility] Start: 12-03-2022 End: 12-03-2022 Office outpatient visit 15 minutes [facility] Start: 11-18-2021 End: 11-18-2021 Office outpatient visit 15 minutes Mi Venegas BITUMINOUS DISTRIBUTOR OPERATOR Work Phone: [facility] Start: 10-18-2021 End: 10-18-2021 Office outpatient visit 15 minutes Mi Venegas BITUMINOUS DISTRIBUTOR OPERATOR Work Phone: [facility] Start: 10-09-2021 End: 10-09-2021 ambulatory SIOMARA MAYA [facility] Start: 10-06-2021 End: 10-07-2021 Emergency department patient visit DAVID MAYA [facility] Start: 12-24-2018 End: 12-24-2018 Patient encounter procedure Mi Venegas [facility] Start: 12-01-2018 Patient encounter procedure [facility] Start: 12-01-2018 End: 12-01-2018 Office outpatient visit 15 minutes [facility] Start: 11-07-2018 End: 11-07-2018 Annotation/Addendum Mi Hamm [facility] Start: 11-01-2018 End: 11-01-2018 Office outpatient new 45 minutes [facility] Start: 11-01-2018 End: 11-01-2018 Patient encounter status Mi Venegas [facility] Patient encounter status Curt Shah LPN [facility]; [facility] Work Phone: Patient encounter status Tomeka Harvey CMA OR LPN [facility]; [facility] Work Phone: Procedures Date Procedure Procedure Detail Performing Clinician Start: 10-06-2021 Urinalysis DAVID CARVAJAL Comment on above: Result Comment: URINALYSIS Performed By: #### [id number] #### [facility],[address] [place] [address] Start: 01-11-2019 End: 01-11-2019 Surgery Visit Report Comments: See Note; NOTES: [facility] [address] [place] [address] OFFICE VISIT Date of Service: 01/10/19 MR#: [id number] Acct: [id number] Name: SUZANNE GARSIA Rep #: [id number] : 1970 Provider: Italia Diana PA-C Age/Sex: 48/M Location: [facility] Status: Signed with Addenda ADDENDUM by Italia Diana PA-C on 01/11/19 at 1303 Addendum entered and electronically signed by Italia Diana PA-C 01/11/19 13:03: Discussed hiatal hernia repair with Dr. Cueto. At this time, patient does not require a lap Armida workup. Patient notes the reflux is controlled with omeprazole. Patient noted if his symptoms return, he will contact the office. 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 01/11/19 1304 <Electronically signed by Italia Diana PA-C> Date __ Italia Diana PA-C cc: Mi Venegas MATERIALS DIRECTOR * Signed Intake Intake Visit Reasons: CHOLECYSTECTOMY 12/31/18 Chief Complaint: sumit and hernia 2-1 Recording Clerk Required: No Is patient in pain?: No Allergies aspirin Allergy (Unknown, Verified 01/10/19 15:16) Unknown Medications Cyanocobalamin (Vitamin B-12) [Vitamin B-12] 1,000 mcg PO DAILY 12/21/18 [History Confirmed 12/21/18] Multivitamin [Multiple Vitamins] 1 ea PO DAILY 12/21/18 [History Confirmed 12/21/18] Omeprazole 40 mg PO DAILY #90 tab 12/24/18 [Rx] Subjective Details: Patient is a 48 y/o male I am following for biliary colic and umbilical hernia. Dr. Cueto performed a laparoscopic cholecystectomy with intraoperative cholangiogram and umbilical hernia repair on 12/31/18. Pathology demonstrated chronic cholecystitis and fibrosis. Patient notes minimal amount of incisional discomfort. He denies nausea, vomiting, fever. Objective Details: Abdomen- incisions c/d/i. No erythema or infection noted. Positive bowel sounds. Assessment AND Plan Problems 1. Chronic cholecystitis K81.1 Plan - Recommend no lifting greater than 20 pounds for 6 weeks - Follow-up as needed - I will discuss with Dr. Cueto in regards to patients hiatal hernia Coding Level of Care Code Global Post Op Diagnoses Chronic cholecystitis K81.1 01/11/19 1156 <Electronically signed by Italia Diana PA-C> Date __ Italia Diana PA-C Cosigner Signature: Date __ (if applicable) CC: Mi Venegas BITUMINOUS DISTRIBUTOR OPERATOR Work Phone: Start: 01-11-2019 End: 01-11-2019 Surgery Visit Report Comments: See Note; NOTES: [facility] [address] [place] [address] OFFICE VISIT Date of Service: 01/10/19 MR#: [id number] Acct: [id number] Name: SUZANNE GARSIA Rep #: [id number] : 1970 Provider: Italia Diana PA-C Age/Sex: 48/M Location: [facility] Status: Signed Intake Intake Visit Reasons: CHOLECYSTECTOMY 12/31/18 Chief Complaint: sumit and hernia 2-1 Recording Clerk Required: No Is patient in pain?: No Allergies aspirin Allergy (Unknown, Verified 01/10/19 15:16) Unknown Medications Cyanocobalamin (Vitamin B-12) [Vitamin B-12] 1,000 mcg PO DAILY 12/21/18 [History Confirmed 12/21/18] Multivitamin [Multiple Vitamins] 1 ea PO DAILY 12/21/18 [History Confirmed 12/21/18] Omeprazole 40 mg PO DAILY #90 tab 12/24/18 [Rx] Subjective Details: Patient is a 48 y/o male I am following for biliary colic and umbilical hernia. Dr. Cueto performed a laparoscopic cholecystectomy with intraoperative cholangiogram and umbilical hernia repair on 12/31/18. Pathology demonstrated chronic cholecystitis and fibrosis. Patient notes minimal amount of incisional discomfort. He denies nausea, vomiting, fever. Objective Details: Abdomen- incisions c/d/i. No erythema or infection noted. Positive bowel sounds. Assessment AND Plan Problems 1. Chronic cholecystitis K81.1 Plan - Recommend no lifting greater than 20 pounds for 6 weeks - Follow-up as needed - I will discuss with Dr. Cueto in regards to patients hiatal hernia Coding Level of Care Code Global Post Op Diagnoses Chronic cholecystitis K81.1 01/11/19 1156 <Electronically signed by Italia Diana PA-C> Date __ Italia Diana PA-C Cosigner Signature: Date __ (if applicable) CC: Mi Venegas BITUMINOUS DISTRIBUTOR OPERATOR Work Phone: Start: 12-31-2018 End: 12-31-2018 Discharge Instruction Comments: See Note; NOTES: [facility] Medical Records Department [address] [place] [address] Instructions for Home/Discharge Instructions 12/31/18 0758 MR#: [id number] Acct: [id number] Name: SUZANNE GARSIA Rep #: [id number] : 1970 48 From: Suzanne Cueto MD PCP: Mi Venegas NP Status: DEP [facility] [place] Discharge Diet: Light diet - advance as tolerated - if you have questions about your diet instructions, please talk to you doctor. Discharge Activity: May Not Drive - for 3-5days or while taking narcotic pain medicine. May shower in (days): 1 Lifting Restrictions: 10 pounds Call your doctor if your incision/area has: Continuous Slow Oozing, Sudden Increased Bleeding, Increased Pain/ Swelling, Increased Redness, Foul Smelling Discharge Call your doctor if you observe: Fever of 101 or Higher Suture Line Care: Avoid Pulling/Pushing, Avoid Pinching/Bending Additional Dressing/Incision Instructions:: Change or remove dressing in 4 days. Leave steri-strips in place for 1 week. Allergies/Adverse Reactions: Allergies aspirin Allergy (Unknown, Verified 12/21/18 11:28) Unknown Medications to take at Discharge Cyanocobalamin (Vitamin B-12) [Vitamin B-12] 1,000 mcg PO DAILY 12/21/18 Multivitamin [Multiple Vitamins] 1 each PO DAILY 12/21/18 Omeprazole 40 mg PO DAILY #90 tab 12/24/18 Hydrocodone Bitart/Apap 5-325 [[place] 5MG-325MG] 1 tablet PO Q4H PRN PRN 3 Days #8 tablet 12/31/18 The following prescriptions were given: Hydrocodone Bitart/Apap 5-325 [[place] 5MG-325MG] 1 tablet PO Q4H PRN PRN 3 Days #8 tablet PRN Reason: Pain Primary Care Physician: Mi Venegas, CHRISTOFER-C [Primary Care Provider] - Test Results: Test results from this visit will be discussed in further detail at your follow-up appointment, if applicable. Please Follow Up With: Suzanne Cueto MD - [phone] When: Call to make an appointment to be seen in about 10 days. 12/31/18 9187 <Electronically signed by Suzanne Cueto MD> Date __ Suzanne Cueto MD CC: Mi Venegas NP Signed Mi Venegas CNP Work Phone: Start: 12-31-2018 End: 12-31-2018 Operative Report Comments: See Note; NOTES: [facility] Medical Records Department [address] [facility] [place] [address] Operative Report 12/31/18 0944 MR#: [id number] Acct: [id number] Name: SUZANNE GARSIA Rep #: [id number] : 1970 48 From: Suzanne Cueto MD PCP: Mi Venegas NP Status: DEP [facility] [place] Y Location: [facility] [place] Problem List (1) Cholelithiasis with chronic cholecystitis Status: Chronic Qualifiers: Cholelithiasis location: gallbladder Biliary obstruction: without biliary obstruction Qualified Code(s): K80.10 - Calculus of gallbladder with chronic cholecystitis without obstruction Report of Operation Date of Procedure: 12/31/18 Pre-Operative Diagnosis: Chronic cholecystitis cholelithiasis. Umbilical hernia Post-Operative Diagnosis: Same Surgery/Procedure Performed:: Laparoscopic cholecystectomy with cholangiography. Umbilical herniorrhaphy utilizing ventral Juvenal ST mesh 6.4 cm diameter lot number [id number]. Reference #[id number]. Expiry date 10/27/2020 Description of Surgical Findings:: Timeout and informed consent was obtained. 48-year-old gent was taken out from placement table underwent general endotracheal intubation anesthesia. Ancef 2 g given intravenously preoperatively. The abdomen sterilely prepped and draped. 0.5% Marcaine was used as local anesthetic. Throughout the procedure total 30 cc was used. Skin sites were pre-anesthetized. A vertical incision was made through the umbilicus. Sharp and blunt dissection was used to identify the umbilical hernia was sharply dissected free holding sutures of 0 Vicryl placed a 10 mm trocar was directly placed through the open peritoneum the abdomen was insufflated with CO2 to a pressure of 10 mmHg pressure the abdomen was inspected there was fatty omentum overlying the small bowel no evidence of any trocar injuries. There was dense adherence of the omentum completely obliterating view to the gallbladder. 5-minute trochars were placed in the epigastric mid abdomen right upper quadrant tedious blunt dissection was required to gradually take the omentum off of the gallbladder hemo-lock clips were generous to be used for hemostasis finally I was able to get exposure down to the infundibular area further blunt dissection was used to get the critical view the cystic artery and cystic duct now clearly identified. Hemo-lock clip was placed on the cystic duct and then an incision was made in the cystic duct cholangiogram catheter was inserted through a 14-gauge Angiocath fluoroscopically controlled clench grams were obtained demonstrating normal ductal anatomy and free flow into the small bowel. The cholangiogram catheter was removed and a hemo-lock clip was nicely placed on the cystic duct. Cystic artery was cured twice proximally with 2 hemo-lock clips. Then the gallbladder was tediously dissected free from the liver bed with electrocautery. The gallbladder was very elongated and had several large stones. I was able to get good complete release of the gallbladder. The liver bed was inspected was noted to be hemostatic. Excess fluid and air was aspirated free generous irrigation had been utilized in the right upper quadrant. The gallbladder was placed in retrieval bag it was exited at the umbilicus enlargement of the fascial incision was required because of the size of the stones. The abdomen was allowed to deflate the CO2. The 6.4 similar ventral X was inserted. The tails were secured with 0 Nurolon. The fascia was closed transversely with multiple sutures of 0 Nurolon. Skin edges were approximated with interrupted 4 Monocryl subdermal stitches. I did laparoscopically inspect the repair prior to leaving. The mesh appeared to have a good positional flat lie. I made sure the greater omentum was beneath it. There was no evidence of the bowel. Trochars were removed under visualization. The abdomen was allowed to deflate of the CO2. Steri-Strips Telfa and OpSite dressings applied after the 4-0 Monocryl closure and the subcuticular layer. Sponge and instrument and needle counts were reported to the surgeon be correct. Blood loss was minimal. He tolerated the procedure well was taken to the recovery area in satisfactory condition without apparent complication. Specimens gallbladder and portions of umbilical hernia sac and contents. Drains none. Blood loss minimal. Suzanne Cueto M.D., F.A.C.S. Type of Anesthesia:: General Anesthesiologist: Timothy Santana 12/31/18 1815 <Electronically signed by Suzanne Cueto MD> Date __ Suzanne Cueto MD CC: Mi Venegas NP; Suzanne Cueto MD Signed Mi Venegas CNP Work Phone: Start: 12-31-2018 End: 12-31-2018 Cholangiogram/ O R,Initial Comments: See Note; NOTES: [facility] Imaging Services [address] [place] [address] Cholangiogram/ O R,Initial MR#: [id number] Acct: [id number] Name: SUZANNE GARSIA Rep #: [id number] : 1970 M 48 From: Sedrick Schrader MD PCP: Mi Venegas NP Status: [facility] Study: Cholangiogram/ O R,Initial Date of Exam: 12/31/18 Exam# [id number] Ordering Dr: Suzanne Cueto MD STUDY: INTRAOPERATIVE CHOLANGIOGRAM. REASON FOR EXAM: Male, 48 years old. Laparoscopic cholecystectomy. FLUOROSCOPY TIME (if supplied): (12.6 seconds) minutes/seconds TECHNIQUE: Intraoperative coagulum was performed by the surgeon. Imaging was provided. COMPARISON: None. __ FINDINGS: The visualized intrahepatic biliary ducts are unremarkable. The common bile duct is not dilated. No intraluminal filling defect is seen. There is free flow of contrast into the duodenum. __ RAD/Cholangiogram/ O R,Initial IMPRESSION: Unremarkable intraoperative cholangiogram. Electronically Signed: Sedrick Schrader MD at 9:45 EST , Service support , CC: Mi Venegas NP; Suzanne Cuteo MD Auto Body Repair Technician: Signed Mi Venegas CNP Work Phone: Start: 12-28-2018 End: 12-28-2018 12 lead ECG Comments: See Note; NOTES: [facility] Cardiovascular Services [address] [place] [address] 12 Lead EKG 12/27/18 1623 MR#: [id number] Acct: [id number] Name: SUZANNE GARSIA Rep #: [id number] : 1970 48 From: Emeka Venegas MD Attending Dr: Suzanne Cueto MD Status: PRE SDC Ordering Dr: Suzanne Cueto MD Date: 12/27/18 Location: [facility] – [place] Sex: M C Admitted: Test Reason : PRE OP Blood Pressure : / mmHG Vent. Rate : 072 BPM Atrial Rate : 072 BPM P-R Int : 168 ms QRS Dur : 090 ms QT Int : 372 ms P-R-T Axes : 063 018 040 degrees QTc Int : 407 ms Normal sinus rhythm Normal ECG Confirmed by LIVIA MAYA, EMEKA ([id number]), photograph editor DILAN MANZANARES ([id number]) on 12/28/2018 2:12:11 PM Referred By: Suzanne Cueto Confirmed By:EMEKA VENEGAS MD 12/28/18 1412 Date __ Emeka Venegas MD CC: Mi Venegas NP; Suzanne Cueto MD Signed Mi Venegas CNP Work Phone: Start: 12-24-2018 End: 12-24-2018 Operative Report - Endoscopy Comments: See Note; NOTES: [facility] Medical Records Department [address] [place] [address] Operative Report - Endoscopy MR#: [id number] Acct: [id number] Name: SUZANNE GARSIA Rep #: [id number] : 1970 48 From: Suzanne Cueto MD PCP: Mi Venegas NP Status: REG SDC Patient Name: Suzanne Garsia Procedure Date: 12/24/2018 7:38 AM Date of : 1970 Age: 48 Procedure: Colonoscopy Indications: Abdominal pain in the left lower quadrant Providers: Suzanne Cueto MD Referring MD: Suzanne Cueto MD Medicines: See the Anesthesia note for documentation of the administered medications Patient Profile: Last Colonoscopy: none. The patient's first colonoscopy is today. Complications: No immediate complications. Procedure: Pre-Anesthesia Assessment: - Prior to the procedure, a History and Physical was performed, and patient medications and allergies were reviewed. The patient's tolerance of previous anesthesia was also reviewed. The risks and benefits of the procedure and the sedation options and risks were discussed with the patient. All questions were answered, and informed consent was obtained. Prior Anticoagulants: The patient has taken no previous anticoagulant or antiplatelet agents. ASA Grade Assessment: II - A patient with mild systemic disease. After reviewing the risks and benefits, the patient was deemed in satisfactory condition to undergo the procedure. After I obtained informed consent, the scope was passed under direct vision. Throughout the procedure, the patient's blood pressure, pulse, and oxygen saturations were monitored continuously. The colonoscope was introduced through the anus and advanced to the cecum, identified by appendiceal orifice and ileocecal valve. The colonoscopy was performed without difficulty. The patient tolerated the procedure well. The quality of the bowel preparation was good. The ileocecal valve was photographed. Scope In: 7:41:09 AM Scope Withdrawal Time 0 hours 6 minutes 13 seconds Scope Out: 7:52:58 AM Total Procedure Duration Time 0 hours 11 minutes 49 seconds Findings: Hemorrhoids were found on perianal exam. A few diverticula were found in the sigmoid colon. The exam was otherwise without abnormality. Impression: - Hemorrhoids found on perianal exam. - Diverticulosis in the sigmoid colon. - The examination was otherwise normal. - No specimens collected. Recommendation: - Discharge patient to home. - Resume previous diet. - Continue present medications. - Repeat colonoscopy in 10 years for screening purposes. No findings that correlate with left lower quadrant abdominal pain Procedure Code(s): --- Professional --- 39918, Colonoscopy, flexible; diagnostic, including collection of specimen(s) by brushing or washing, when performed (separate procedure) Diagnosis Code(s): --- Professional --- K64.9, Unspecified hemorrhoids R10.32, Left lower quadrant pain K57.30, Diverticulosis of large intestine without perforation or abscess without bleeding CPT copyright 2017 [employer]. All rights reserved. The codes documented in this report are preliminary and upon lozenge maker review may be revised to meet current compliance requirements. Suzanne Cueto MD 12/24/2018 8:01:05 AM This report has been signed electronically. Number of Addenda: 0 Note Initiated On: 12/24/2018 7:38 AM 12/24/18800 Date __ Suzanne Cueto MD Cosign Signature: Date __ (if indicated) CC: Mi Venegas MATERIALS DIRECTOR; Suzanne Cueto MD Date Dictated: 12/24/18737 Date Transcribed: Auto Body Repair Technician: DAMIAN Signed Mi Venegas Start: 12-07-2018 End: 12-07-2018 Surgery Visit Report Comments: See Note; NOTES: [facility] [address] [place] [address] [address] [place] [address] OFFICE VISIT Date of Service: 12/07/18 MR#: [id number] Acct: [id number] Name: SUZANNE GARSIA Rep #: [id number] : 1970 Provider: Suzanne Cueto MD Age/Sex: 48/M Location: [facility] Status: Signed Intake Vital Signs12/07/18 Height 5 ft 8 in 12/07/18 Weight: 230 lb Intake Visit Reasons: ABDOMINAL HERNIA Recording Clerk Required: No Is patient in pain?: Yes (Left groin) Pain scale (1-10): 1 Allergies aspirin Allergy (Unknown, Verified 12/07/18 15:33) Unknown Medications NK 12/07/18 [History Confirmed 12/07/18] PFSH Medical History Hemorrhoids (Acute) Nausea (Acute) Abdominal pain (Acute) Fatigue (Acute) Surgical History Hx of nevus excision (Acute) Hx of tonsillectomy (Acute) Hx of bilateral inguinal hernia repair (Acute) Family History Father Heart disease Hypertension High cholesterol Brother High cholesterol Hypertension Social History Smoking Status: Former smoker alcohol intake: current alcohol intake frequency: holidays/special occasions only substance use type: does not use caffeine: Yes frequency: does not exercise HPI HPI HPI: SUZANNE GARSIA, is a 48 M who presents to the office today for surgical consultation regarding actually a variety of problems. Patient is referred by primary care provider PATRICK Gonzalez and a written compromise surgical consult and recommendations will be returned to her The patient apparently tended to her with a complaint of recent onset of left groin pain. In that same setting he complained of postprandial epigastric pain immediate nausea and vomiting after eating. The patient has a previous history dating back to January 11, [address] Narciso Shah had performed bilateral inguinal herniorrhaphies. A Bassini repair of a small right direct inguinal hernia was performed at the same setting a mesh plug repair of a larger indirect left inguinal hernia was performed. The patient reminds me that somewhere in the interim subsequent to that I assisted him by performing a steroid injection of the left groin for neuralgia. That apparently was successful. The patient presents today thinking that he has a recurrent hernia. At the [facility] on December 06, 2018 a left groin ultrasound was performed. There was a rounded 3.5 cm area in the left groin resting the question of a possible recurrent hernia however its appearance is unchanged before and after Valsalva. A CT was recommended. On that same date a CT scan of the abdomen and pelvis was obtained this demonstrated multiple gallstones. A small fat-containing umbilical hernia. No other acute findings. There is evidence of the plug mesh in the left groin. There is no finding of inguinal hernia bilaterally. ROS General General: Yes weight change and fatigue; no appetite, colon cancer, breast cancer or weakness HEENT HEENT: No difficulty swallowing, eye injury, eye surgery, swollen glands or hoarseness Endo Endocrine: No thyroid disease, diabetes mellitus, thyroid cancer, Hair loss, heat intolerance or cold intolerance Skin Skin: No rash or changing moles Musc Musculoskeletal: No back problems, arthritis, rheumatoid arthritis, gout or joint pain Cardio Cardiovascular: No murmur, pacemaker, heart disease, atrial fibrillation, high blood pressure, heart attack, heart stent, palpitations, shortness of breat with exertion or chest pain Psych Psychiatric: No depression, anxiety or hearing voices Resp Respiratory: No shortness of breath, No sleep apnea, No cough, No COPD, No asthma, No emphysema, No wheezing Gastro Gastrointestinal: Yes abdominal pain, Yes nausea or vomiting, Yes hemorrhoids, No diarrhea, No constipation, No blood in stool, No acid reflux, No ulcers, Yes gallbladder problem, No black,tarry stools Jourdan Hematologic: No blood thinners, No blood disorders, No bleeding, No anemia, No blood clots Neuro Neurologic: No system reviewed and no additional complaints, except as docu, No as per HPI, No abnormal walking, No abnormal hearing, No abnormal movements, No abnormal speech, No behavioral changes, No burning sensations, No confusion, No seizure-like activity, No unsteadiness, No dizziness, No localized weakness, No frequent falls, No headache(s), No lack of coordination, No loss of vision, No memory loss, No numbness, No other visual disturbances, No radiating pain, No restless legs, No sensory deficit, No fainting, No tingling, No tremor(s), No weakness, No other Exam Const General: cooperative, healthy appearing, comfortable, no acute distress Nutritional Appearance: obese Orientation: alert, awake HENMT Head: normal to inspection Chest Chest palpation AND inspection: normal inspection of the chest Resp Effort AND Inspection: normal respiratory effort Cardio Rate: regular rate Rhythm: regular rhythm Heart Sounds: no murmurs GI Palpation: soft, no hepatosplenomegaly Auscultation: normal bowel sounds Other: Small reducible slightly tender umbilical hernia Other: Well-healed bilateral groin incisions. No tenderness or defect noted on the right. Testicle is descended without mass Left groin has evidence of some small varicoceles. No testicular mass. Solid left groin without palpable hernia. The patient was examined upright and supine Neuro General: alert, awake, oriented x3 Extrem General: no clubbing, cyanosis or edema Psych Affect: normal affect Assessment AND Plan Problems 1. Epigastric pain R10.13 2. Nausea R11.0 3. Abdominal pain, left lower quadrant R10.32 4. Calculus of gallbladder with chronic cholecystitis without obstruction K80.10 5. Neuralgia of groin M79.2 6. Umbilical hernia without obstruction or gangrene K42.9 Plan 48-year-old gentleman with multiple medical issues as noted above. Regarding his epigastric pain this may indeed be secondary to either esophagogastric disease because of his immediate pain postprandially associated with nausea and vomiting. It could be related to chronic cholecystitis cholelithiasis. I am recommending a esophagogastroduodenoscopy with possible biopsy or polypectomy is indicated Umbilical hernia is present. The patient may be a candidate for a laparoscopic cholecystectomy for the treatment of chronic cholecystitis cholelithiasis. I have instructed the patient that an incision would be placed at the umbilicus and I would anticipate a suture repair of his umbilical hernia. The patient does very vigorous physical activity. Consideration for placement of mesh at the time of surgery would need to be pending the degree of difficulty of cholecystectomy. Regarding the left lower quadrant abdominal pain. Unclear to me whether this is inguinal pain groin pain or possibly intra-abdominal pain. The patient has never had a previous colonoscopy. I recommend combining the upper endoscopy with a colonoscopy with possible biopsy or polypectomy to exclude the possibility of colonic etiology. 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 I believe that the ultrasound evaluation of the left groin has identified the mesh plug. I do not believe that there is any evidence currently that would suggest a recurrent left inguinal hernia. I am not proposing at this time surgical intervention on the left groin Patient and his have had an opportunity to ask and have questions answered. I very much appreciate the kind opportunity of assisting with his surgical care. We will schedule and proceed with indicated evaluation. CC: SHAYE Gonzalez M.D., F.A.C.S. Coding Level of Care Code Comprehensive,moderate Diagnoses Epigastric pain R10.13 Nausea R11.0 Abdominal pain, left lower quadrant R10.32 Calculus of gallbladder with chronic cholecystitis without obstruction K80.10 Cholelithiasis location: gallbladder Biliary obstruction: without biliary obstruction Neuralgia of groin M79.2 Umbilical hernia without obstruction or gangrene K42.9 12/07/18 1701 <Electronically signed by Suzanne Cueto MD> Date __ Suzanne Cueto MD Cosigner Signature: Date __ (if applicable) CC: Mi Venegas Start: 12-06-2018 End: 12-06-2018 Abdomen/Pelvis without Cont Comments: See Note; NOTES: [facility] Imaging Services [address] [place] [address] Abdomen/Pelvis without Cont MR#: [id number] Acct: [id number] Name: SUZANNE GARSIA Rep #: [id number] : 1970 M 48 From: Cam Reynolds MD PCP: Mi Venegas NP Status: REG CLI Study: Abdomen/Pelvis without Cont Date of Exam: 12/06/18 Exam# [id number] Ordering Dr: Mi Venegas MATERIALS DIRECTOR-C STUDY: CT ABDOMEN AND PELVIS WITHOUT CONTRAST REASON FOR EXAM: Male, 48 years old. Left-sided abdominal pain. Prior hernia repair x 2, question of recurrent hernia. RADIATION DOSAGE (If Supplied By Facility): CTDIvol = ( 14.75 ) mGy, DLP = ( 945.66 ) mGycm TECHNIQUE: Transaxial images were obtained from the dome of the diaphragm to the symphysis pubis without oral contrast, and without intravenous contrast. Sagittal and coronal images were reconstructed. Individualized dose optimization techniques were used for this CT. COMPARISON: None. __ FINDINGS: The visualized lung bases are unremarkable. The visualized portions of the heart are within normal limits. Normal liver. The portal vein diameter is 15.5 mm. There are multiple gallstones, one of the larger stones measuring 1.75 x 1.15 x 1.6 cm. There is no mural thickening of the gallbladder nor pericholecystic fluid to suggest cholecystitis. The common bile duct diameter is 5 mm. Normal spleen. Normal pancreas. Normal bilateral adrenal glands. Normal right kidney. Normal left kidney. No hydronephrosis. Normal visualized stomach. Normal small intestine. Normal colon. The appendix is visualized and appears normal. Normal abdominal aorta. Normal inferior vena cava. There are nonspecific periaortic lymph nodes in the retroperitoneum. Normal urinary bladder. Normal visualized prostate gland. There is a small umbilical hernia containing fat. There are mild multilevel degenerative changes of the visualized lumbar spine. Subcentimeter subarticular cystic degenerative change noted in the lateral roof of the left acetabulum. Small bilateral hydroceles are suggested. __ CT/Abdomen/Pelvis without Cont IMPRESSION: 1. Gallstones. No CT sign of acute cholecystitis or bile duct obstruction. 2. Small, fat-containing umbilical hernia. 3. The bowel is unremarkable without signs of obstruction. The appendix is normal. 4. No hydronephrosis. Electronically Signed: Alonso Reynolds MD at 17:33 EST , Service support , CC: Mi Venegas NP; Suzanne Cueto MD Auto Body Repair Technician: Signed Mi Venegas Work Phone: Start: 12-06-2018 End: 12-06-2018 Ext Non Vasc Limited/Soft Tiss Comments: See Note; NOTES: [facility] Imaging Services [address] [place] [address] Ext Non Vasc Limited/Soft Tiss MR#: [id number] Acct: [id number] Name: SUZANNE GARSIA Rep #: [id number] : 1970 M 48 From: Cam Reynolds MD PCP: Mi Venegas NP Status: REG CLI Study: Ext Non Vasc Limited/Soft Tiss Date of Exam: 12/06/18 Exam# [id number] Ordering Dr: Mi Venegas MATERIALS DIRECTOR-C STUDY: SUPERFICIAL ULTRASOUND - LEFT GROIN REASON FOR EXAM: Male, 48 years old. Left-sided hernia. Surgery many years ago. TECHNIQUE: A superficial ultrasound was performed with real-time and static carmichael-scale imaging. COMPARISON: None. __ FINDINGS: There is mild distortion in the subcutaneous tissues at the level of the prior hernia repair. Curvilinear echogenicity with posterior fusion shadowing in the left groin may be a previously implanted mesh. Deep to this is suggestion of an asymmetric rounded 3.5 cm area that does not change before or with Valsalva maneuver. __ US/Ext Non Vasc Limited/Soft Tiss IMPRESSION: Rounded 3.5 cm area in the left groin raises question of a small recurrent hernia, although its appearance is unchanged before and with Valsalva maneuver. The area is also difficult to evaluate due to posterior acoustic shadowing, possibly related to an overlapping mesh. Characterization with CT or MRI may be useful. Electronically Signed: Alonso Reynolds MD at 19:47 EST , Service support , CC: Mi Venegas NP Auto Body Repair Technician: Signed Mi Venegas Work Phone: Start: 11-30-2017 End: 11-30-2017 Operation on oral cavity Juanita Amato Comment on above: laser Start: 11-30-2009 End: 11-30-2009 mole removal Juanita Amato Start: 11-30-1999 End: 11-30-1999 Hernia repair Juanita Amato Start: 11-30-1976 End: 11-30-1976 Tonsillectomy Juanita Amato Cholecystectomy SUHAS RODRIGUEZ MD History of tonsillectomy SUHAS RODRIGUEZ MD Inguinal hernia (disorder) SUHAS RODRIGUEZ MD Comment on above: bilateral Umbilical hernia (disorder) SUHAS RODRIGUEZ MD Plan of Treatment Date Care Activity Detail Author Start: 12-03-2022 Procedure Education Eprescribe d prescriptions (G8553) [facility]; [facility] Work Phone: Start: 11-18-2021 Procedure Education Eprescribe d prescriptions (G8553) [facility]; [facility] Work Phone: Start: 11-18-2021 Provider Instruction s for Treatment [facility]; [facility] Work Phone: Start: 10-18-2021 Procedure Education Eprescribe d prescriptions (G8553) [facility]; [facility] Work Phone: Start: 10-18-2021 Provider Instruction s for Treatment Follow up in 1 month or 6 weeks. [facility]; [facility] Work Phone: Start: 10-18-2021 Comprehensive metabo lic panel Metabolic Panel, Comprehensive (86642) [facility]; [facility] Work Phone: Comment on above: Give slip to pt Start: 10-18-2021 Lipid panel LIPID PANEL (77800) [facility]; [facility] Work Phone: Comment on above: give to pt fasting Start: 12-01-2018 Blood count reticulo cyte automated RETICULOCYTE COUNT (39833) [facility] Work Phone: Start: 12-01-2018 Cobalamin (Vitamin B 12) mass conc VITAMIN B12 AND FOLATES (70968) [facility] Work Phone: Start: 12-01-2018 Cyanocobalamin vitam in b-12 VITAMIN B12 AND FOLATES (86899) [facility]; [facility] Work Phone: Start: 12-01-2018 Procedure Education Eprescribe d prescriptions (G8553) [facility]; [facility] Work Phone: Start: 12-01-2018 Provider Instruction s for Treatment [facility]; [facility] Work Phone: Start: 11-01-2018 Comprehensive metabo lic panel Metabolic Panel, Comprehensive (85810) [facility] Work Phone: Start: 11-01-2018 Blood count complete automated CBC & PLATELETS (AUTO) (22441) [facility] Work Phone: Start: 11-01-2018 Assay of thyroid stimulating hormone tsh TSH (THYROID STIMULATING HORMONE) (35865) [facility]; [facility] Work Phone: Start: 11-01-2018 Thyrotropin Qn TSH (THYROID STIMULATING HORMONE) (55296) [facility] Work Phone: Start: 11-01-2018 Lipid panel LIPID PANEL (11675) [facility] Work Phone: Start: 11-01-2018 Assay of prostate specific antigen total PSA (PROSTATE SPECIFIC ANTIGEN) (V76.44) [facility]; [facility] Work Phone: Start: 11-01-2018 Protein mass conc PSA (PROSTAT E SPECIFIC ANTIGEN) (V76.44) [facility] Work Phone: Start: 11-01-2018 Procedure Education Eprescribe d prescriptions (G8553) [facility]; [facility] Work Phone: Start: 11-01-2018 Provider Instruction s for Treatment [facility]; [facility] Work Phone: [facility] Work Phone: [facility] Work Phone: Non-smoker : Eprescribed prescriptions (G8553) [facility] Work Phone: [facility] Work Phone: [facility] Work Phone: Immunizations Immunization Date Immunization Notes Care Provider Roslyn case 04-13-2023 tetanus toxoid, redu ignacio diphtheria toxoid, and acellular pertussis vaccine, adsorbed SUHAS RODRIGUEZ MD [facility] Payers Date Payer Category Payer Unknown [id number] 2018 Private Health Insurance [id number] 1970 Unknown [id number] 1970 Unknown [id number] 1970 Unknown [id number] [id number] 1970 Unknown [id number] Unknown Unknown [id number] Social History Date Type Detail Facility Alcohol use: Former smoker [facility] Work Phone: Caffeine use: Coffee. [facility] Work Phone: Comment on above: 3 cups daily Drug Use: No drug use. [facility] Work Phone: Tobacco use: Former smoker. [facility] Work Phone: Comment on above: quit 1994 Alcohol use: Alcohol use: [facility]; [facility] Work Phone: Caffeine use: Caffeine use: [facility]; [facility] Work Phone: Comment on above: 3 cups daily Drug Use: Drug Use: [facility] Work Phone: Tobacco use: Tobacco use: [facility]; [facility] Work Phone: Comment on above: quit 1994 Start: 07-14-2019 Tobacco smoking status Ex-smoker (finding) [facility] Sex Assigned At Male [facility] Functional Status Date Assessment Result Facility 04-13-2023 Functional Status Independent [facility] 04-13-2023 Functional Status Standard Safet y ID band on, Call device within reach, Bed in low position, Wheels locked, Bedside Cart Locked, Safety level maintained [facility] Mental Status Date Assessment Result Facility 04-13-2023 Mental Status Orientation Oriented x 4 [facility] 04-13-2023 Mental Status [facility] Discharge instructions 04-13-2023 Note Date & Type Note Facility 04-13-2023 Hospital Discharg e instructions Patient Education 04/13/2023 14:13:53 LACERATION, All Laceration (All Closures) A laceration is a cut through the skin. This will usually require stitches (sutures) or deepti if it is deep. Minor cuts may be treated with a surgical tape closure or skin glue. Home care The following guidelines will help you care for your laceration at home: Extremity, face, or trunk wounds Keep the wound clean and dry. If a bandage was applied and it becomes wet or dirty, replace it. Otherwise, leave it in place for the first 24 hours. If stitches or deepti were used, clean the wound daily. After removing the bandage, wash the area with soap and water. Use a wet cotton swab to loosen and remove any blood or crust that forms. The doctor may prescribe an antibiotic cream or ointment to prevent infection. Do not stop taking this medication until you have finished the prescribed course or the doctor tells you to stop. The doctor may also prescribe medications for pain. Follow the doctor s instructions for taking these medications. You may remove the bandage to shower as usual after the first 24 hours, but do not soak the area in water (no swimming) until the stitches or deepti are removed. If surgical tape was used, keep the area clean and dry. If it becomes wet, blot it dry with a towel. If skin glue was used, do not scratch, rub, or pick at the adhesive film. Do not place tape directly over the film. Do not apply liquid, ointment, or creams to the wound while the film is in place. Do not clean the wound with peroxide and do not apply ointments. Avoid activities that cause heavy sweating until the film has fallen off. Protect the wound from prolonged exposure to sunlight or tanning lamps. You may shower as usual but do not soak the wound in water (no baths or swimming). The film will fall off by itself in 5 10 days. Scalp wounds During the first two days, you may carefully rinse your hair in the shower to remove blood, glass or dirt particles. After two days, you may shower and shampoo your hair normally. Do not soak your scalp in the tub or go swimming until the stitches or deepti have been removed. Talk with your doctor before applying any antibiotic ointment to the wound. Mouth wounds Eat soft foods to reduce pain. If the cut is inside of your mouth, clean by rinsing after each meal and at bedtime with a mixture of equal parts water and hydrogen peroxide (do not swallow!). Or, you can use a cotton swab to directly apply hydrogen peroxide onto the cut. Mouth wounds can be painful when eating. You may use an [id number] local numbing solution for pain relief. If this is not available, you may use any numbing solution for teething babies. You may apply this directly to the sores with a cotton-tip swab or with your finger. Follow-up care Follow up with your health care provider. Most skin wounds heal within ten days. Mouth and facial wounds heal within five days. However, even with proper treatment, a wound infection may sometimes occur. Therefore, you should check the wound daily for signs of infection listed below. Stitches should be removed from the face within five days; stitches and deepti should be removed from other parts of the body within 7 14 days. If dissolving stitches were used in the mouth, these will fall out or dissolve without the need for removal. If tape closures were used, remove them yourself if they have not fallen off after 7 days. If skin glue was used, the film will fall off by itself in 5 10 days. When to seek medical advice Call your health care provider right away if any of these occur: Bleeding not controlled by direct pressure Signs of infection, including increasing pain in the wound, increasing wound redness or swelling, or pus coming from the wound Fever of 100.4 F (38 C) or higher, or as directed by your health care provider Stitches or deepti come apart or fall out or surgical tape falls off before 7 days Wound edges re-open [id number] [email or web address]. [address] [place] [address], [place] [address]. All rights reserved. This information is not intended as a substitute for professional medical care. Always follow your healthcare professional's instructions. Follow Up Care 04/13/2023 13:13:00 With:ALEXA LIU Address: [place] [address]- When:2-4 days [facility] Clinical Note 04-13-2023 Note Date & Type Note Facility 04-13-2023 Note Discharge Instructions Thank you for allowing Jose to assist you with your healthcare needs. The following is important discharge information regarding your hospital visit. Diagnosis from Today's Visit Laceration of hand Laceration of hand What to Do Next Instructions from Your Care Team stitches need removed in 7-10 days No qualifying data available. Post Acute Orders No qualifying data available. You Need to Schedule the Following Appointments Follow Up with ALEXA LIU When Within 2-4 days Where: [address] [facility] [place] [address]- Allergies aspirin (Hives, Swelling) Immunizations This Visit Given Vaccine Datetetanus/diphth/pertuss (Tdap) adult/adol 04/13/2023 Medications Please ask your primary doctor or pharmacist before taking any other medication not listed, including over the counter drugs, herbal medications, vitamins and or supplements as they may interact with your home medications. Please take this list to your next doctor s visit. Bring all medications you take, including over the counter medications, herbals and other supplements with you to your doctor s visit. Patients and families are reminded to discard old lists and to update any records with all medication providers or retail pharmacies. Education Materials Laceration (All Closures) A laceration is a cut through the skin. This will usually require stitches (sutures) or deepti if it is deep. Minor cuts may be treated with a surgical tape closure or skin glue. Home care The following guidelines will help you care for your laceration at home: Extremity, face, or trunk wounds Keep the wound clean and dry. If a bandage was applied and it becomes wet or dirty, replace it. Otherwise, leave it in place for the first 24 hours. If stitches or deepti were used, clean the wound daily. After removing the bandage, wash the area with soap and water. Use a wet cotton swab to loosen and remove any blood or crust that forms. The doctor may prescribe an antibiotic cream or ointment to prevent infection. Do not stop taking this medication until you have finished the prescribed course or the doctor tells you to stop. The doctor may also prescribe medications for pain. Follow the doctor s instructions for taking these medications. You may remove the bandage to shower as usual after the first 24 hours, but do not soak the area in water (no swimming) until the stitches or deepti are removed. If surgical tape was used, keep the area clean and dry. If it becomes wet, blot it dry with a towel. If skin glue was used, do not scratch, rub, or pick at the adhesive film. Do not place tape directly over the film. Do not apply liquid, ointment, or creams to the wound while the film is in place. Do not clean the wound with peroxide and do not apply ointments. Avoid activities that cause heavy sweating until the film has fallen off. Protect the wound from prolonged exposure to sunlight or tanning lamps. You may shower as usual but do not soak the wound in water (no baths or swimming). The film will fall off by itself in 5 10 days. Scalp wounds During the first two days, you may carefully rinse your hair in the shower to remove blood, glass or dirt particles. After two days, you may shower and shampoo your hair normally. Do not soak your scalp in the tub or go swimming until the stitches or deepti have been removed. Talk with your doctor before applying any antibiotic ointment to the wound. Mouth wounds Eat soft foods to reduce pain. If the cut is inside of your mouth, clean by rinsing after each meal and at bedtime with a mixture of equal parts water and hydrogen peroxide (do not swallow!). Or, you can use a cotton swab to directly apply hydrogen peroxide onto the cut. Mouth wounds can be painful when eating. You may use an [id number] local numbing solution for pain relief. If this is not available, you may use any numbing solution for teething babies. You may apply this directly to the sores with a cotton-tip swab or with your finger. Follow-up care Follow up with your health care provider. Most skin wounds heal within ten days. Mouth and facial wounds heal within five days. However, even with proper treatment, a wound infection may sometimes occur. Therefore, you should check the wound daily for signs of infection listed below. Stitches should be removed from the face within five days; stitches and deepti should be removed from other parts of the body within 7 14 days. If dissolving stitches were used in the mouth, these will fall out or dissolve without the need for removal. If tape closures were used, remove them yourself if they have not fallen off after 7 days. If skin glue was used, the film will fall off by itself in 5 10 days. When to seek medical advice Call your health care provider right away if any of these occur: Bleeding not controlled by direct pressure Signs of infection, including increasing pain in the wound, increasing wound redness or swelling, or pus coming from the wound Fever of 100.4 F (38 C) or higher, or as directed by your health care provider Stitches or deepti come apart or fall out or surgical tape falls off before 7 days Wound edges re-open [phone] The [employer]. [address] [place] [address]. All rights reserved. This information is not intended as a substitute for professional medical care. Always follow your healthcare professional's instructions. Additional Information VACCINATE! IT SAVES LIVES! Members of the community who have not yet received the COVID-19 vaccine and would like to receive it can visit one of [facility] vaccine clinics. There are many vaccine clinic locations within the [facility]. For locations and available times, please visit [email or web address].[email or web address] It is important to note that some COVID mobile vaccine clinics are held outdoors and may be canceled in rainy or stormy conditions. To learn more about pediatric vaccinations (ages 5-11), we invite you to visit the [facility] webpage. [email or web address] -[email or web address] To learn more about the COVID-19 vaccine, we invite you to visit the CDC website for a list of frequently asked questions. https://www.cdc.gov/coronavirus/2019-n cov/vaccines/faq.html [facility] Patient Portal Access Instructions: Stay connected with your healthcare team and access your personal medical information anytime with the [facility] Patient Portal. If you would like a full copy of your medical records please contact the [facility] Medical Records Department Thursday through Thursday between 8a.m. and 4:30p.m. Please follow the directions below to access the portal: 1.Access the email account you provided upon registration to the [facility].2.Look for an invitation email from [facility].3.Open the email and access the invitation link: Accept Invitation to [facility]4.Fill in the required rae to create your account. Sign into www.[email or web address] with your username and password that you created in the above steps to stay up to date. You can then view a summary of results, a summary of your visits, and the ability to download your summaries to your computer or send the information securely to a physician. Remember that your healthcare information is confidential, so carefully consider who you will allow to register on the [facility] Patient Portal for access to your information. You can also access the [facility] Patient Portal on the [employer]. Simply click on Health Records under Health Data and then click on the [employer] logo. HOW TO SAFELY DISPOSE OF PRESCRIPTION MEDICATIONS Please use one of the following methods to safely dispose of your unused medications. 1.Use a drug disposal kit: the drug disposal pouch allows you to safely discard your old and unused drugs. Ask your nurse to give you one when you are discharged.2.Visit a local take-back location: Many local pharmacies and police departments have programs that collect old and unwanted prescription drugs. Call your local pharmacy or go to http://bit.Park.com/4T1Tn2a to find one close to you.3.Make use of household items: Use cat litter or old coffee grounds to dispose medications if other options are not available. Mix your drugs with these household products, seal them in an airtight container and throw it into the garbage. Call [facility]: [phone] to be sure your drugs can be disposed of in this way. Some medicines may require a different approach.4.Never flush your medications down the toilet. IF YOU HAVE BEEN PRESCRIBED AN OPIOIDS FOR PAIN If you have been prescribed an opioid (such as hydrocodone, oxycodone or morphine), it is critical to understand the possible side effects and risks of opioid pain medications. Even when taken as directed, opioids can have several side effects including: Tolerance, meaning you might need to take more of a medication for the same pain relief. Nausea, vomiting and/or constipation. Sleepiness, dizziness, dry mouth, confusion, depression or itching. Physical dependence, meaning you have withdrawal symptoms when a medication is stopped ? this can develop within a few days. KNOW YOUR RESPONSIBILITIES It is important to know exactly how much and how often to take the opioid pain medications you are prescribed. Never take opioids in higher amounts or more often than prescribed. Do not combine opioids with alcohol or other drugs that cause drowsiness, such as benzodiazepines, also known as benzos, including diazepam and alprazolam, muscle relaxants or sleep aids. Never sell or share prescription opioids. This is illegal. Store opioids in a secure place and out of reach of others (including children, family, friends and visitors). The last page(s) of this document has been signed and retained as a CHART COPY Signatures Patient Education Materials LACERATION, All Medication Leaflets My discharge plan and instructions have been reviewed and explained to me and I,SUZANNE GARSIA understand my current condition and have read and understand these discharge instructions. I have received a written copy of the plan/instructions. If I have questions, I am aware that I should contact my doctor. 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 HISTORY: ORDERING SYSTEM PROVIDED HISTORY: Reason for Exam: pain; laceration to posterior aspect of hand directly across knuckles. Patient states using granular work in slice back of hand no history of any other injury or foreign body FINDINGS: No fracture or dislocation. There are multiple tiny radiopaque foreign bodies noted in the dorsal soft tissues at the 2nd and 3rd MCP joints. There is additional soft tissue swelling and subcutaneous air noted in the same location. Carpal arcs are maintained. Scapholunate relationship is normal. IMPRESSION: No acute osseous abnormality. Soft tissue laceration with numerous tiny radiopaque foreign bodies of the dorsal hand at the 2nd and 3rd MCP joints. I have personally reviewed the images of this examination and agree with the resident's findings and interpretation. Interpreted by: Cristobal Coto MD Preliminary Report By: Yinka Christian Electronically signed By Cristobal Coto MD Dictated Date: 04/13/2023 1:51:19 PM Prelim Date: 04/13/2023 1:56:41 PM Sign Date: 04/13/2023 2:10:22 PM Ordering Provider: [facility] Clinical Note 04-13-2023 Note Date & Type Note Facility 04-13-2023 Note ORIGINAL EXAMINATION: THREE XRAY VIEWS OF THE RIGHT HAND 04/13/2023 1:36 pm COMPARISON: None. HISTORY: ORDERING SYSTEM PROVIDED HISTORY: Reason for Exam: pain; laceration to posterior aspect of hand directly across knuckles. Patient states using granular work in slice back of hand no history of any other injury or foreign body FINDINGS: No fracture or dislocation. There are multiple tiny radiopaque foreign bodies noted in the dorsal soft tissues at the 2nd and 3rd MCP joints. There is additional soft tissue swelling and subcutaneous air noted in the same location. Carpal arcs are maintained. Scapholunate relationship is normal. IMPRESSION: No acute osseous abnormality. Soft tissue laceration with numerous tiny radiopaque foreign bodies of the dorsal hand at the 2nd and 3rd MCP joints. I have personally reviewed the images of this examination and agree with the resident's findings and interpretation. Interpreted by: Cristobal Coto MD Preliminary Report By: Yinka Christian Electronically signed By Cristobal Coto MD Dictated Date: 04/13/2023 1:51:19 PM Prelim Date: 04/13/2023 1:56:41 PM Sign Date: 04/13/2023 2:10:22 PM Ordering Provider: SUHAS RODRIGUEZ [facility] Evaluation + Plan note Note Date & Type Note Facility Evaluation + Plan note No data available for this section [facility] Instructions Note Date & Type Note Facility Instructions Name Patient Instructions Indication:Non-smoker Start: Instruction Type:Provider Instructions for Treatment How to Access Health Information Online using Patient Portal and 3rd [employer] Apps Indication:Non-smoker Start: Instruction Type:Patient Education Patient Instructions Indication:Non-smoker Start: Instruction Type:Provider Instructions for Treatment How to Access Health Information Online using Patient Portal and [employer]rd [employer] Apps Indication:Non-smoker Start: Instruction Type:Patient Education How to access health information online Indication:Non-smoker Start:01-Dec-2018 Instruction Type:Patient Education How to access health information online - Detail Indication:Non-smoker Start:01-Dec-2018 Instruction Type:Patient Education Patient Instructions Indication:Non-smoker Start:01-Dec-2018 Instruction Type:Provider Instructions for Treatment How to access health information online Indication:Non-smoker Start:01-Nov-2018 Instruction Type:Patient Education How to access health information online - Detail Indication:Non-smoker Start:01-Nov-2018 Instruction Type:Patient Education Patient Instructions Indication:Screening for deficiency anemia Start:01-Nov-2018 Instruction Type:Provider Instructions for Treatment [facility] Work Phone: Instructions Note Date & Type Note Facility Instructions Name Patient Instructions Indication:Non-smoker Start: Instruction Type:Provider Instructions for Treatment How to Access Health Information Online using Patient Portal and 3rd [employer] Apps Indication:Non-smoker Start: Instruction Type:Patient Education Patient Instructions Indication:Non-smoker Start: Instruction Type:Provider Instructions for Treatment How to Access Health Information Online using Patient Portal and [employer]rd [employer] Apps Indication:Non-smoker Start: Instruction Type:Patient Education How to access health information online Indication:Non-smoker Start:01-Dec-2018 Instruction Type:Patient Education How to access health information online - Detail Indication:Non-smoker Start:01-Dec-2018 Instruction Type:Patient Education Patient Instructions Indication:Non-smoker Start:01-Dec-2018 Instruction Type:Provider Instructions for Treatment How to access health information online Indication:Non-smoker Start:01-Nov-2018 Instruction Type:Patient Education How to access health information online - Detail Indication:Non-smoker Start:01-Nov-2018 Instruction Type:Patient Education Patient Instructions Indication:Screening for deficiency anemia Start:01-Nov-2018 Instruction Type:Provider Instructions for Treatment [facility] Work Phone: Instructions Note Date & Type Note Facility Instructions Name Patient Instructions Indication:BMI 35.0-35.9,adult Start:03-Dec-2022 Instruction Type:Provider Instructions for Treatment How to Access Health Information Online using Patient Portal and 3rd [employer] Apps Indication:BMI 35.0-35.9,adult Start:03-Dec-2022 Instruction Type:Patient Education Patient Instructions Indication:Non-smoker Start: Instruction Type:Provider Instructions for Treatment How to Access Health Information Online using Patient Portal and [employer]rd [employer] Apps Indication:Non-smoker Start: Instruction Type:Patient Education Patient Instructions Indication:Non-smoker Start: Instruction Type:Provider Instructions for Treatment How to Access Health Information Online using Patient Portal and [employer]rd [employer] Apps Indication:Non-smoker Start: Instruction Type:Patient Education How to access health information online Indication:Non-smoker Start:01-Dec-2018 Instruction Type:Patient Education How to access health information online - Detail Indication:Non-smoker Start:01-Dec-2018 Instruction Type:Patient Education Patient Instructions Indication:Non-smoker Start:01-Dec-2018 Instruction Type:Provider Instructions for Treatment How to access health information online Indication:Non-smoker Start:01-Nov-2018 Instruction Type:Patient Education How to access health information online - Detail Indication:Non-smoker Start:01-Nov-2018 Instruction Type:Patient Education Patient Instructions Indication:Screening for deficiency anemia Start:01-Nov-2018 Instruction Type:Provider Instructions for Treatment [facility] Work Phone: Family History No Family History Records FoundUnknown Family Member Name Dates Details Brother 1 Comments:hypertension, high cholesterol Status:Active Father Comments:hypertension, heart and lung disease, high cholesterol Status:Active Maternal Grandfather Comments:hypertension, heart disease, high cholesterol, stroke Status:Active Maternal Grandmother Comments:diabeties type 2 - insulin dependent Status:Active Paternal Grandfather Comments:lung disease Status:Active Paternal Grandmother Comments:hypertension, strok e Status:Active Unknown Family Member Name Dates Details Brother 1 Comments:hypertension, high cholesterol Status:Active Father Comments:hypertension, heart and lung disease, high cholesterol Status:Active Maternal Grandfather Comments:hypertension, heart disease, high cholesterol, stroke Status:Active Maternal Grandmother Comments:diabeties type 2 - insulin dependent Status:Active Paternal Grandfather Comments:lung disease Status:Active Paternal Grandmother Comments:hypertension, strok e Status:Active Unknown Family Member Name Dates Details Brother 1 Comments:hypertension, high cholesterol Status:Active Father Comments:hypertension, heart and lung disease, high cholesterol Status:Active Maternal Grandfather Comments:hypertension, heart disease, high cholesterol, stroke Status:Active Maternal Grandmother Comments:diabeties type 2 - insulin dependent Status:Active Paternal Grandfather Comments:lung disease Status:Active Paternal Grandmother Comments:hypertension, strok e Status:Active Unknown Family Member Name Dates Details Brother 1 Comments:hypertension, high cholesterol Status:Active Father Comments:hypertension, heart and lung disease, high cholesterol Status:Active Maternal Grandfather Comments:hypertension, heart disease, high cholesterol, stroke Status:Active Maternal Grandmother Comments:diabeties type 2 - insulin dependent Status:Active Paternal Grandfather Comments:lung disease Status:Active Paternal Grandmother Comments:hypertension, strok e Status:Active Unknown Family Member Name Dates Details Brother 1 Comments:hypertension, high cholesterol Status:Active Father Comments:hypertension, heart and lung disease, high cholesterol Status:Active Maternal Grandfather Comments:hypertension, heart disease, high cholesterol, stroke Status:Active Maternal Grandmother Comments:diabeties type 2 - insulin dependent Status:Active Paternal Grandfather Comments:lung disease Status:Active Paternal Grandmother Comments:hypertension, strok e Status:Active Instructions Name Dates Details Non-smoker : How to access h ealth information online Indication:Non-smoker Non-smoker : How to access h ealth information online - Detail Indication:Non-smoker Screening for deficiency ane darius : Patient Instructions Indication:Screening for deficiency anemia Name Dates Details Non-smoker : How to access h ealth information online Indication:Non-smoker Non-smoker : How to access [facility] information online - Detail Indication:Non-smoker Non-smoker : Patient Instruc tions Indication:Non-smoker Screening for deficiency ane darius : Patient Instructions Indication:Screening for deficiency anemia Summary Purpose Advance Directives No Advanced Directives Records FoundNo Advanced Directives Records FoundNo Advanced Directives Records FoundNo Advanced Directives Records Found Additional Source Comments (unrecognized sect ion and content) No Status Records FoundNo Status Records FoundNo Status Records FoundNo Status Records Found INFORMATION SOURCE (unrecogn ized section and content) DATE CREATED AUTHOR 12/01/2018 [facility] DATE CREATED AUTHOR AUTHOR'S ORGANIZ ATION 10/20/2021 [facility] DATE CREATED AUTHOR AUTHOR'S ORGANIZ ATION 01/10/[address] [facility] DATE CREATED AUTHOR AUTHOR'S ORGANIZ ATION 05/30/2023 [facility] ([place]) Patient Care team informatio n (unrecognized section and content) Care Team Personnel Name: [place] VENEGAS [address] DRIVER Member Role: Primary Care Physician Address: Address: [address] [place] [address] [address] [place], [place] [address] Name: SUHAS RODRIGUEZ MD Position: ED Physician Member Role: Attending Physician Address: Address: [facility] [address] [place] [id number] Name: Jannette Bates RN Position: ED RN Member Role: ED RN Care Team Related Persons Name: MARA GARSIA Address: [address] [phone] FOR RECORDS PERTAINING TO PATIENTS WHO ARE OR HAVE BEEN ENROLLED IN A CHEMICAL DEPENDENCY/SUBSTANCEABUSE PROGRAM, SOME INFORMATION MAY BE OMITTED. This clinical summary was aggregated from multiple sources. Caution should be exercised in using it in the provision of clinical care. This summary normalizes information from multiple sources, and as a consequence, information in this document may materially change the coding, format and clinical context of patient data. In addition, data may be omitted in some cases. CLINICAL DECISIONS SHOULD BE BASED ON THE PRIMARY CLINICAL RECORDS. [facility] [employer] [facility]. provides no warranty or guarantee of the accuracy or completeness of information in this document.
[2025-10-21 09:32] LABS: Hematocrit 43.3 % (40-54); Hemoglobin 14.9 g/dL (13.0-16.5); Immature Granulocytes Count 0.010 X10^3/uL (0.0-0.0); Mean Corp Hgb Conc 34.4 g/dL (32-36); Mean Corpuscular Volume 95.4 fL (80-94); Mean Platelet Vol. 9.1 fl (6.2-12.0); NRBC Flagged by Analyzer 0 % (0-5); Platelet Count 226 K/mm3 (150-450); RBC Distribution Width CV 12.5 % (11.6-14.6); RBC Distribution Width SD 43.5 fl (35.1-43.9); Red Blood Count 4.54 M/mm3 (4.6-6.2); White Blood Count 6.2 K/mm3 (4.4-11.0)
[2025-10-21 10:08] LABS: AST(SGOT) 20 U/L (<=37); Alanine Aminotransfer ALT/SGPT 25 U/L (<=46); Albumin, Serum 4.1 g/dL (3.5-5.0); Alkaline Phosphatase 55 U/L (40-129); Anion Gap 9 (5-15); BUN 17 mg/dL (4-19); BUN/Creat Ratio 16.8 RATIO (10-20); Calcium,Total 8.9 mg/dL (7.6-11.0); Carbon Dioxide 24.9 mmol/L (21.0-32.0); Chloride 105 mmol/L (98-108); Cholesterol 192 mg/dL (<=200); Globulin 3.0 g/dL (2.2-4.2); Glucose 119 mg/dL (70-99); Low Density Lipoprotein Calc. 124 mg/dL; PSA,Total - Annual Screen 0.76 ng/mL (0.02-4.00); Potassium 4.5 mmol/L (3.3-5.1); Triglycerides 76 mg/dL; Very Low Density Lipoprotein 15 mg/dL (5-40); cholesterol:hdl ratio screen 3.56
== END | disposition home or self-care (01) ==
LOC: LAB 09:03
PROVIDERS: PCP Physician Assistant; Referring Provider Physician Assistant; Visit Provider Physician Assistant
DX: Z00.00 Encounter for general adult medical examination without abnormal findings (principal); I10 Essential (primary) hypertension; Z12.5 Encounter for screening for malignant neoplasm of prostate
CPT/HCPCS: 36415; 80053; 80061; 84153; 84443; 85025; G0103